=== PATIENT | female | born 1950 | race Caucasian/White ===

== ENCOUNTER 2018-12-12 19:43 | Inpatient (IN) | payer MEDICARE, MEDICAID ==
--- NOTE | 2018-12-12 20:16 | ED Physician Chart ---
ED Chief Complaint/HPI - Patient Information Date Seen:: 12/12/18 Time Seen:: 20:16 Chief Complaint:: Abnormal labs History of Present Illness:: 68 yo female with history of COPD, respiratory failure on ventilation via a trach tube, G-tube, sepsis, dysphagia, hepatic failure, anemia, edema, cardiomyopathy, AFib, TIA/stroke, gout, hypothyroidism and CKD was brought from [facility] to ER for evaluation of abnormal labs (BUN 150, K 3.2) today. Patient is obtunded. History is based on chart review. Allergies:: Allergies Allergy/AdvReac Type Severity Reaction Status Date / Time No Known Allergies Allergy Verified 12/12/18 19:59 Vitals:: Vital Signs - 8 hr 12/12/18 19:45 Temp 98.7 F HR 84 RR 16 BP 109/48 O2 Sat % 100 ED Review of Systems - Review of Systems General/Constitutional: No fever Skin: No bruising Eyes: No pain ENT: No nasal drainage Neck: Other (Tracheostomy) Cardio Vascular: No chest pain, edema Pulmonary: SOB GI: No nausea, No vomiting Musculoskeletal: No muscle pain Neurological: No seizure ED Past Medical History - Past Medical History Past Medical History: Asthma/COPD, CVA/TIA, Thyroid disorder (hypothyroidism), Other (RESPIRATORY FAILURE, G-TUBE, PNEUMONIA, SEPSIS, DYSPHAGIA, HEPATIC FAILURE, EDEMA, ANEMIA, CARDIOMYOPATHY, A-FIB, GOUT, CKD) Social History: Non Smoker, No Alcohol, No Drug Use Surgical History: PEG/GTube Family Medical History - Family Member Mother History Unknown: Yes ED Physical Exam - Physical Examination Other Gen/Cons comments:: Obtunded Head: Atraumatic Eyes: PERRL Other Skin comments:: Edema ENMT: Nasal exam nl Other Neck comments:: Trach intact Other Respiratory comments:: B/L rhonchi Cardio Vascular: RRR, No murmur, gallop, rubs, NL S1 S2 GI: Nondistended Other GI comments:: G-tube intact Other Extremities comments:: 1+ edema of BLE Other Neuro/Psych comments:: obtunded ED Labs/Radiology/EKG Results - Lab Results Results: Laboratory Last Values WBC 15.2 Th/cmm (4.8-10.8) H 12/13/18 04:25 RBC 2.43 Mil/cmm (3.80-5.20) L 12/13/18 04:25 Hgb 8.4 gm/dL (12-16) L 12/13/18 04:25 Hct 24.2 % (41.0-60) L 12/13/18 04:25 MCV 99.4 fl (81-100) 12/13/18 04:25 MCH 34.4 pg (27.0-31.0) H 12/13/18 04:25 MCHC Differential 34.6 pg (28.0-36.0) 12/13/18 04:25 RDW 16.1 % (11.5-20.0) 12/13/18 04:25 Plt Count 355 Th/cmm (150-400) 12/13/18 04:25 MPV 7.4 fl 12/13/18 04:25 Add Manual Diff YES 12/13/18 04:25 Neutrophils % 87.0 % (40.0-80.0) H 12/12/18 20:15 Band Neutrophils % 5 % (0-10) 12/13/18 04:25 Lymphocytes % 5.0 % (20.0-50.0) L 12/12/18 20:15 Monocytes % 5.0 % (2.0-10.0) 12/12/18 20:15 Eosinophils % 3.0 % (0.0-5.0) 12/12/18 20:15 Neutrophils (Manual) 79 % (40-80) 12/13/18 04:25 Lymphocytes 3 % (20-50) L 12/13/18 04:25 Monocytes 3 % (2-10) 12/13/18 04:25 Eosinophils 10 % (0-5) H 12/13/18 04:25 Basophils 0 % (0-3) 12/13/18 04:25 Sodium 132 mEq/L (136-145) L 12/13/18 04:25 Potassium 3.2 mEq/L (3.5-5.1) L 12/13/18 04:25 Chloride 89 mEq/L (98-107) L 12/13/18 04:25 Carbon Dioxide 26.9 mEq/L (21.0-31.0) 12/13/18 04:25 Anion Gap 19.3 (7.0-16.0) H 12/13/18 04:25 BUN 125 mg/dL (7-25) H* 12/13/18 04:25 Creatinine 1.6 mg/dL (0.6-1.2) H 12/13/18 04:25 Est GFR ( Amer) 41.5 ml/min (>90) 12/13/18 04:25 Est GFR (Non-Af Amer) 34.3 ml/min 12/13/18 04:25 BUN/Creatinine Ratio 78.1 12/13/18 04:25 Glucose 238 mg/dL (70-105) H 12/13/18 04:25 POC Glucose 251 MG/DL (70 - 105) H 12/13/18 05:18 Whole Bld Lactic Acid 4.81 mmol/L (0.60-1.99) H* 12/13/18 07:15 Calcium 9.4 mg/dL (8.6-10.3) 12/13/18 04:25 Phosphorus 2.9 mg/dL (2.5-5.0) 12/13/18 04:25 Magnesium 3.1 mg/dL (1.9-2.7) H 12/13/18 04:25 Total Bilirubin 1.1 mg/dL (0.3-1.0) H 12/12/18 20:15 AST 76 U/L (13-39) H 12/12/18 20:15 ALT 100 U/L (7-52) H 12/12/18 20:15 Alkaline Phosphatase 121 U/L (34-104) H 12/12/18 20:15 Troponin I 0.05 ng/mL (0.01-0.05) 12/12/18 20:15 B-Natriuretic Peptide 146.0 pg/mL (5.0-100.0) H 12/13/18 04:25 Total Protein 8.6 gm/dL (6.0-8.3) H 12/12/18 20:15 Albumin 4.0 gm/dL (3.7-5.3) 12/12/18 20:15 Globulin 4.6 gm/dL 12/12/18 20:15 Albumin/Globulin Ratio 0.9 (1.0-1.8) L 12/12/18 20:15 Triglycerides 813 mg/dL (<150) H 12/13/18 04:25 Cholesterol 397 mg/dL (<200) H 12/13/18 04:25 LDL Cholesterol Direct 187 mg/dL (75-193) 12/13/18 04:25 HDL Cholesterol 34 mg/dL (23-92) 12/13/18 04:25 TSH 3.28 uIU/ml (0.34-5.60) 12/13/18 04:25 Urine Source CLEAN C 12/12/18 20:30 Urine Color YELLOW 12/12/18 20:30 Urine Clarity HAZY (CLEAR) 12/12/18 20:30 Urine pH 5.5 (4.6 - 8.0) 12/12/18 20:30 Ur Specific Slater 1.010 (1.005-1.030) 12/12/18 20:30 Urine Protein NEGATIVE mg/dL (NEGATIVE) 12/12/18 20:30 Urine Glucose (UA) NEGATIVE mg/dL (NEGATIVE) 12/12/18 20:30 Urine Ketones NEGATIVE mg/dL (NEGATIVE) 12/12/18 20:30 Urine Blood NEGATIVE (NEGATIVE) 12/12/18 20:30 Urine Nitrate NEGATIVE (NEGATIVE) 12/12/18 20:30 Urine Bilirubin NEGATIVE (NEGATIVE) 12/12/18 20:30 Urine Urobilinogen 0.2 E.U./dL (0.2 - 1.0) 12/12/18 20:30 Ur Leukocyte Esterase SMALL (NEGATIVE) H 12/12/18 20:30 Urine RBC 5-10 /hpf (0-5) H 12/12/18 20:30 Urine WBC 2-5 /hpf (0-5) 12/12/18 20:30 Ur Epithelial Cells RARE /lpf (FEW) 12/12/18 20:30 Amorphous Sediment FEW URATES (NONE SEEN) 12/12/18 20:30 Urine Bacteria FEW /hpf (NONE SEEN) 12/12/18 20:30 Urine Yeast FEW /hpf (NONE SEEN) H 12/12/18 20:30 - Radiology Results Results: CXR: suspect trace left effusion, no focal consolidation, tracheostomy tube - EKG Interpretations EKG Time:: 20:37 Rate & Rhythm: 79 bpm, SR [place]: normal P axis Intervals: prolonged QT interval Comments:: Abnormal EKG ED Assessment - Assessment General Assessment: Sepsis UTI Dehydration Hyponatremia Hypokalemia Acute renal failure, pre-renal Metabolic encephalopathy Anemia, normocytic Assessment/Comments:: CBC, CMP, Trop, BNP, lactic acid Urine culture, sputum culture, blood culture EKG, CXR Trach to vent: AC16, TV450, PEEP5, 2.5L O2 NS 1L IV bolus Rocephin 1g IV K-rider 20mEq IV Admit to ICU ED Septic Shock - . Is Septic Shock (SBP<90, OR Lactate>4 mmol\L) present?: No - <6hrs of presentation: Vital Signs: Vital Signs - 8 hr 12/12/18 19:45 Temp 98.7 F HR 84 RR 16 BP 109/48 O2 Sat % 100 ED Reassessment (Disposition) - Reassessment Reassessment Condition:: Improved - Patient Disposition Discharge/Transfer:: Acute Care w/in this hosp Admitting Medical Physician:: Katelyn Silva
[2018-12-12 20:41] LABS: ALB/GLOB RATIO 0.9 (1.0-1.8); ANION GAP 22.9 (7.0-16.0); BILIRUBIN,TOTAL 1.1 mg/dL (0.3-1.0); CALCIUM SERUM 10.6 mg/dL (8.6-10.3); CARBON DIOXIDE 29.3 mEq/L (21.0-31.0); CREATININE - SERUM 1.9 mg/dL (0.6-1.2); GFR NON AFRICAN-AMERICAN 28.1 ml/min; POTASSIUM SERUM 3.2 mEq/L (3.5-5.1); TOTAL PROTEIN,SERUM 8.6 gm/dL (6.0-8.3)
[2018-12-12 20:41] LABS: URINE SOURCE CLEAN C
[2018-12-12 20:45] LABS: URINE BILIRUBIN NEGATIVE (NEGATIVE); URINE BLOOD NEGATIVE (NEGATIVE); URINE GLUCOSE (UA) NEGATIVE (NEGATIVE); URINE KETONE NEGATIVE (NEGATIVE); URINE LEUKOCYTE ESTERASE SMALL (NEGATIVE); URINE NITRATE NEGATIVE (NEGATIVE); URINE PH 5.5 (4.6 - 8.0); URINE PROTEIN NEGATIVE (NEGATIVE); URINE UROBILINOGEN 0.2 E.U./dL (0.2 - 1.0)
[2018-12-12 20:52] LABS: TROP I 0.05 ng/mL (0.01-0.05)
[2018-12-12] MEDS ORDERED: Sodium Chloride 0.9% 1,000 ML IV ONE ×2 (21:01→22:07)
[2018-12-12] MEDS ORDERED: KCL 20mEq/100mL Premix 20 MEQ/100 ML PIGGYBACK IV ONE ×2 (21:02→21:13)
[2018-12-12 21:07] LABS: URINE CLARITY HAZY (CLEAR); URINE COLOR YELLOW; URINE MICROSCOPIC INDICATED? YES
[2018-12-12 21:13] LABS: URINE BACTERIA FEW /hpf (NONE SEEN); URINE EPITHELIAL CELLS RARE /lpf (FEW); URINE YEAST FEW /hpf (NONE SEEN)
[2018-12-12 21:15] LABS: URINE AMORPHOUS SEDIMENT FEW URATES (NONE SEEN)
[2018-12-12 21:29] LABS: HEMOGLOBIN 9.9 gm/dL (12-16); RED BLOOD COUNT 2.94 Mil/cmm (3.80-5.20); WHITE BLOOD COUNT 14.3 Th/cmm (4.8-10.8)
[2018-12-12 21:30] LABS: HEMATOCRIT 29.1 % (41.0-60); MEAN CELL VOLUME 98.8 fl (81-100); MEAN CORPUSCULAR HEMOGLOBIN 33.4 pg (27.0-31.0); MEAN CORPUSCULAR HGB CONC 33.9 pg (28.0-36.0); MEAN PLATELET VOLUME 7.2 fl; PLATELET COUNT 409 Th/cmm (150-400); RED CELL DISTRIBUTION WIDTH 15.5 % (11.5-20.0)
[2018-12-12 21:33] LABS: BAND NEUTROPHILE 3 % (0-10); EOSINOPHIL 2 % (0-5); LYMPHOCYTE 5 % (20-50); MONOCYTE 3 % (2-10); NEUTROPHILS 87 % (40-80)
[2018-12-12] MEDS ORDERED: cefTRIAXone 1 GM in Sodium Chloride 0.9% 50 ML IV ONE (21:38)
[2018-12-12] MEDS: Sodium Chloride 0.9% 1,000 ML IV SCH (23:00)
[2018-12-12] MEDS ORDERED: Piperacillin Sodium/Tazobact 2.25 gm Vial IV ONE (23:59)
[2018-12-13] MEDS: Piperacillin/Tazobact 2.25 gm in 0.9% NS 50 ML IV SCH ×5 (00:12→23:47)
[2018-12-13] MEDS: INSULIN ASPART SLIDING SCALE 100 UNITS/ML UNIT SUBQ SCH ×5 (00:13→23:54)
[2018-12-13] MEDS ORDERED: Piperacillin Sodium/Tazobact 2.25 gm Vial IV ONE (04:54)
[2018-12-13 05:20] LABS: HEMATOCRIT 24.2 % (41.0-60); HEMOGLOBIN 8.4 gm/dL (12-16); MEAN CELL VOLUME 99.4 fl (81-100); MEAN CORPUSCULAR HEMOGLOBIN 34.4 pg (27.0-31.0); MEAN CORPUSCULAR HGB CONC 34.6 pg (28.0-36.0); MEAN PLATELET VOLUME 7.4 fl; PLATELET COUNT 355 Th/cmm (150-400); RED BLOOD COUNT 2.43 Mil/cmm (3.80-5.20); RED CELL DISTRIBUTION WIDTH 16.1 % (11.5-20.0)
[2018-12-13 05:27] LABS: WHITE BLOOD COUNT 15.2 Th/cmm (4.8-10.8)
[2018-12-13 05:42] LABS: ANION GAP 19.3 (7.0-16.0); CALCIUM SERUM 9.4 mg/dL (8.6-10.3); CARBON DIOXIDE 26.9 mEq/L (21.0-31.0); CREATININE - SERUM 1.6 mg/dL (0.6-1.2); GFR AFRICAN-AMERICAN 41.5 ml/min (>90); GFR NON AFRICAN-AMERICAN 34.3 ml/min; MAGNESIUM 3.1 mg/dL (1.9-2.7); PHOSPHOROUS 2.9 mg/dL (2.5-5.0); POTASSIUM SERUM 3.2 mEq/L (3.5-5.1)
[2018-12-13] MEDS: Sodium Chloride 0.9% 1,000 ML IV SCH ×3 (06:00→22:24)
[2018-12-13 06:12] LABS: BAND NEUTROPHILE 5 % (0-10); BASOPHIL 0 % (0-3); EOSINOPHIL 10 % (0-5); LYMPHOCYTE 3 % (20-50); MONOCYTE 3 % (2-10); NEUTROPHILS 79 % (40-80)
[2018-12-13 08:37] VITALS: BP 109/48
--- NOTE | 2018-12-13 08:49 | Diagnostic Imaging Report ---
CHEST X-RAY: AP view INDICATION: Shortness of breath COMPARISON: None FINDINGS: Tracheostomy tube is noted. Suboptimal lung markings are seen with mild elevation of left hemidiaphragm increased left basal lung markings. Chronic lung changes are also noted. Mild Cardiomegaly is noted. No focal consolidation. There may be trace left pleural fluid. Degenerative changes of the spine are noted. IMPRESSION: Chronic lung changes with increased left basal lung markings which may be due to subsegmental atelectasis. Faint infiltrate of the left base is less likely but cannot be excluded.. No focal consolidation identified. Suspect trace left effusion. Mild cardiomegaly.
--- NOTE | 2018-12-13 09:19 | Diagnostic Imaging Report ---
CHEST X-RAY: AP view INDICATION: Respiratory failure, pneumonia COMPARISON: 12/12/2018 FINDINGS: Tracheostomy tube is stable. Chronic lung changes are noted. Suboptimal lung volumes are seen with bibasal atelectatic changes. No focal consolidation or gross effusions. Mild cardiomegaly is noted. IMPRESSION: Suboptimal lung volumes and bibasal atelectatic changes. No focal consolidation identified. Chronic lung changes.
[2018-12-13 09:42] LABS: pH 7.47 (7.35-7.45)
[2018-12-13] MEDS ORDERED: INSULIN ASPART SLIDING SCALE 100 UNITS/ML UNIT SUBQ SCH (11:30)
[2018-12-13] MEDS ORDERED: Potassium Chloride 40 MEQ, Lidocaine 1% 20mL Vial 25 MG in Sodium Chloride 0.9% 250 ML IV ONE (15:00)
[2018-12-13] MEDS: Albuterol Nebulizer 2.5mg/3mL HHN PRN (15:22)
[2018-12-13] MEDS ORDERED: VTE Chemical Prophylaxis Screen/Admission MC PRN (15:56)
[2018-12-13] MEDS: Epoetin Alfa 20000 Units/mL Vial SUBQ SCH (16:57)
[2018-12-13 17:09] LABS: EOSINOPHIL SMEAR SOURCE URINE; EOSINOPHILS SMEAR COUNT NONE SEEN (NONE SEEN)
[2018-12-13] MEDS: Lactulose 10 Gm/15 mL 30mL UDC GT SCH (17:50)
[2018-12-13] MEDS: Insulin Detemir 100 units/mL 10mL Vial SUBQ SCH (17:52)
[2018-12-13] MEDS ORDERED: cefTRIAXone 1 GM in Sodium Chloride 0.9% 50 ML IV SCH (20:00)
--- NOTE | 2018-12-13 20:08 | Consultation ---
DATE OF CONSULTATION: 12/13/2018 ATTENDING: Jonathon Silva M.D. REASON FOR CONSULTATION: Worsening kidney function, electrolyte imbalance, and fluid management. HISTORY OF PRESENT ILLNESS: This is a 68-year-old female with past medical history of chronic kidney disease, who was brought in because of abnormal labs. A few hours prior to admission, the patient had labs drawn, which revealed a BUN of greater than 150, creatinine of 1.9, sodium of 124, potassium 3.2. She was eventually brought to the Emergency Room. Her white count was 14.3. Chest x-ray revealed no acute disease. Temperature was 98.7 degrees. Her BUN/creatinine were 151/1.9 with a sodium of 125 and potassium of 3.2. Lactic acid was 3.86. PAST MEDICAL HISTORY: 1. Chronic kidney disease. 2. Respiratory failure, vent dependent. 3. Chronic liver failure. 4. Essential hypertension. 5. Hypothyroidism. 6. Type 2 diabetes mellitus. 7. Chronic obstructive pulmonary disease. 8. Dementia without behavioral disturbance. 9. Gout. 10. Status post transient ischemic attack. PAST SURGICAL HISTORY: 1. Status post tracheostomy. 2. Status post PEG placement. CURRENT MEDICATIONS: She is currently on acetaminophen, albuterol, allopurinol, ascorbic acid, ceftriaxone, docusate sodium, Epogen, ferrous sulfate, aspart, KCl, lactulose, levothyroxine, multivitamins with minerals, Zofran, Protonix, piperacillin sodium, sevelamer, vitamin B complex, piperacillin tazobactam. ALLERGIES: No known drug allergies. SOCIAL AND FAMILY HISTORY: I was not able to obtain directly from the patient because she is currently on a ventilator. REVIEW OF SYSTEMS: Again, I was not able to decipher from the patient because of the same reason. PHYSICAL EXAMINATION: GENERAL: The patient is obtunded, right now on a ventilator, but not in any form of distress. VITAL SIGNS: Her blood pressure is 109/48, pulse 81, temperature 98.1 degrees. SKIN: Poor turgor. Warm. No rash, no jaundice appreciated. HEENT: Head: Normocephalic, atraumatic. Eyes: Unable to assess her extraocular muscles. Pupils are equal, round, reactive to light and accommodates. Anicteric sclerae. Pale conjunctivae. Nose: Midline nasal septum. Mouth: Dry mucosa with poor dentition. NECK: Supple, no adenopathy, no thyromegaly, no bruits. Presence of midline endotracheal tube. CHEST AND CVS: S1, S2. No rub, murmur, no gallop appreciated. Point of maximal impulse fifth intercostal space, left lateral clavicular line. There are no bruits either diastolic. No abdominal or femoral bruits appreciated. LUNGS: Equal expansion. No use of accessory muscles. No supraclavicular retractions. Decreased breath sounds, scattered rhonchi, but no rales nor wheezes appreciated. BREASTS: Pendulous symmetrical without any discharge. ABDOMEN: Obese, soft, questionable ascites, decreased bowel sounds. No bruits either diastolic or systolic. RECTAL: Unable to perform due to the patient's size and position. GENITOURINARY: Normal appearing female genitalia with indwelling Ricketts catheter. MUSCULOSKELETAL: No effusions present in her joints, but unable to assess her range of motion. EXTREMITIES: No evidence of edema, cyanosis, or clubbing with palpable femoral, popliteal and dorsalis pedis pulses. NEUROLOGIC: The patient is obtunded at the present time, so I was not able to pursue further by neuro exam. LABORATORY DATA: Revealed sodium 132, potassium 3.2, chloride 89, bicarbonate 26, BUN 125, creatinine 1.6, glucose 238, magnesium 3.1, phosphorus 2.9, calcium 9.4. BNP 146, cholesterol 397, triglycerides 813, LDL 187, HDL 34. TSH 3.28. IMPRESSION: 1. Acute kidney injury on chronic kidney disease, MDRD GFR 34 mL per minute, stage 3. The patient's chronic kidney disease is secondary to longstanding history of diabetes, giving rise to diabetic nephropathy. She also has some underlying hypertension, which could also lead to development of hypertensive nephrosclerosis. Acute kidney injury with markedly elevated BUN to creatinine ratio is likely prerenal in nature. She also has electrolyte imbalance, suggestive of some form of electrolyte loss, which could be due to nausea and vomiting as well as diarrhea. This could explain the prerenal component. However, this was also supported by physical exam of poor skin turgor with dry oral mucosa. Elevated BUN to creatinine ratio may also suggest some form of hypercatabolism in the presence of severe sepsis. 2. Electrolyte imbalance, etiology unknown with hyponatremia and hypokalemia. Again, with this combination, the possibility of nausea and vomiting or diarrhea may be a causative factor. The patient currently is not on any diuretics. 3. Lactic acidosis secondary to ongoing severe sepsis. 4. Sepsis, possibly due to complicated urinary tract infection. 5. Respiratory failure, vent dependent. 6. Chronic liver failure, possibly due to non-alcoholic fatty liver disease. 7. Dyslipidemia. 8. Essential hypertension. 9. Hypothyroidism. 10. Type 2 diabetes mellitus. 11. Chronic obstructive pulmonary disease. 12. Dementia without behavioral disturbance. 13. Gout. 14. Status post transient ischemic attack. PLAN: 1. Continue with normal saline. 2. Urine C and S and blood culture x 2. 3. Urine sodium, eosinophils, and creatinine. 4. Urine microalbumin to creatinine ratio. 5. Renal along with abdominal ultrasound. 6. Electrolytes, ammonia level, ,lipase and CBC, hemoglobin A1c, urinalysis, lactic acid level, aldosterone along with cortisol. Thank you Dr. Silva for this consult. We will follow the patient closely with you. [facility]# [id number]
[2018-12-13] MEDS: Docusate Sodium 100 mg/10 mL UD GT SCH ×2 (20:38→21:45)
[2018-12-14 05:02] LABS: HEMATOCRIT 24.3 % (41.0-60)
[2018-12-14 05:16] LABS: HEMOGLOBIN 8.3 gm/dL (12-16); MEAN PLATELET VOLUME 6.6 fl; PLATELET COUNT 343 Th/cmm (150-400); RED BLOOD COUNT 2.43 Mil/cmm (3.80-5.20); RED CELL DISTRIBUTION WIDTH 16.2 % (11.5-20.0); WHITE BLOOD COUNT 11.1 Th/cmm (4.8-10.8)
[2018-12-14 05:22] LABS: MEAN CELL VOLUME 100.1 fl (81-100)
[2018-12-14 05:36] LABS: ALB/GLOB RATIO 0.9 (1.0-1.8); ALBUMIN 3.2 gm/dL (3.7-5.3); ANION GAP 16.5 (7.0-16.0); BILIRUBIN,TOTAL 0.8 mg/dL (0.3-1.0); CARBON DIOXIDE 24.7 mEq/L (21.0-31.0); CREATININE - SERUM 1.4 mg/dL (0.6-1.2); GFR AFRICAN-AMERICAN 48.4 ml/min (>90); MAGNESIUM 2.9 mg/dL (1.9-2.7); PHOSPHOROUS 1.7 mg/dL (2.5-5.0); POTASSIUM SERUM 4.2 mEq/L (3.5-5.1); TOTAL PROTEIN,SERUM 6.7 gm/dL (6.0-8.3); URIC ACID 6.3 mg/dL (2.3-6.6)
[2018-12-14] MEDS: INSULIN ASPART SLIDING SCALE 100 UNITS/ML UNIT SUBQ SCH ×4 (05:38→23:50)
[2018-12-14] MEDS: Sodium Chloride 0.9% 1,000 ML IV SCH ×4 (05:38→23:45)
[2018-12-14] MEDS: Piperacillin/Tazobact 2.25 gm in 0.9% NS 50 ML IV SCH ×4 (05:38→23:50)
[2018-12-14 06:00] LABS: BAND NEUTROPHILE 0 % (0-10); LYMPHOCYTE 5 % (20-50); NEUTROPHILS 85 % (40-80)
[2018-12-14 06:01] LABS: BASOPHIL 0 % (0-3); EOSINOPHIL 5 % (0-5); MONOCYTE 5 % (2-10)
[2018-12-14] MEDS: Levothyroxine 0.125 Mg Tab GT SCH (06:51)
[2018-12-14] MEDS: Albuterol Nebulizer 2.5mg/3mL HHN PRN ×3 (07:23→19:52)
[2018-12-14] MEDS ORDERED: Pantoprazole 40 mg/Packet GT SCH (09:00)
[2018-12-14] MEDS: Insulin Detemir 100 units/mL 10mL Vial SUBQ SCH ×2 (09:20→17:07)
[2018-12-14] MEDS: Chlorhexidine Gluconate 0.12% 15mL Mouthwash MM SCH ×2 (09:23→20:35)
[2018-12-14] MEDS: Vitamin B Complex w/Vitamin C Tab GT SCH (09:26)
[2018-12-14] MEDS: Multivitamin w/ Minerals 15 mL UDC GT SCH (09:26)
[2018-12-14] MEDS: Ferrous Sulfate 300 MG/5 ML UDC GT SCH (09:26)
[2018-12-14] MEDS: Lactulose 10 Gm/15 mL 30mL UDC GT SCH ×2 (09:26→17:04)
--- NOTE | 2018-12-14 09:32 | Diagnostic Imaging Report ---
Portable chest x-ray HISTORY: Shortness of breath Compared with prior exam of December 13, 2018, there is a very poor inspiration. Heart size difficult to assess. Allowing for the poor inspiration, no acute focal pulmonary processes. Slight pleural reaction noted about the right costophrenic angle. IMPRESSION: 1. Allowing for a poor inspiration, no definite acute focal pulmonary parenchymal processes
--- NOTE | 2018-12-14 12:31 | Diagnostic Imaging Report ---
Exam: Ultrasound summation abdomen. HISTORY: Ascites, liver failure Exam: None Findings: Real-time ultrasound examination abdomen performed the planes. The study is limited due to patient body habitus and large amount of intra-abdominal bowel gas. The liver parenchyma is intact. There is evidence for cholelithiasis multiple calculi in the most dependent portion of gallbladder. Common bile duct measures 4.6 mm. Pancreas is not seen. There is no evidence for obstructive uropathy or nephrolithiasis. Right kidney measures 11.2 x 4.5 x 8.3 cm in diameter. The left kidney measures 11.9 x 5.9 x 7.1 mm diameter. The spleen is enlarged. No free fluid is noted. IMPRESSION: Extremely limited examination due to patient body habitus and large amount of intra-abdominal bowel gas Cholelithiasis.
[2018-12-14] MEDS ORDERED: Potassium Phosphate 20 MMOLE in Sodium Chloride 0.9% 250 ML IV ONE (13:49)
--- NOTE | 2018-12-14 13:49 | General Progress Note ---
Subjective - Review of Systems Service Date: 12/14/18 Subjective: barely opens eyes Objective - Results Result Diagrams: 12/14/18 04:51 12/14/18 04:51 Recent Labs: Laboratory Last Values WBC 11.1 Th/cmm (4.8-10.8) H 12/14/18 04:51 RBC 2.43 Mil/cmm (3.80-5.20) L 12/14/18 04:51 Hgb 8.3 gm/dL (12-16) L 12/14/18 04:51 Hct 24.3 % (41.0-60) L 12/14/18 04:51 MCV 100.1 fl (81-100) H 12/14/18 04:51 MCH 34.0 pg (27.0-31.0) H 12/14/18 04:51 MCHC Differential 34.0 pg (28.0-36.0) 12/14/18 04:51 RDW 16.2 % (11.5-20.0) 12/14/18 04:51 Plt Count 343 Th/cmm (150-400) 12/14/18 04:51 MPV 6.6 fl 12/14/18 04:51 Add Manual Diff YES 12/14/18 04:51 Neutrophils % 87.0 % (40.0-80.0) H 12/12/18 20:15 Band Neutrophils % 0 % (0-10) 12/14/18 04:51 Lymphocytes % 5.0 % (20.0-50.0) L 12/12/18 20:15 Monocytes % 5.0 % (2.0-10.0) 12/12/18 20:15 Eosinophils % 3.0 % (0.0-5.0) 12/12/18 20:15 Neutrophils (Manual) 85 % (40-80) H 12/14/18 04:51 Lymphocytes 5 % (20-50) L 12/14/18 04:51 Monocytes 5 % (2-10) 12/14/18 04:51 Eosinophils 5 % (0-5) 12/14/18 04:51 Basophils 0 % (0-3) 12/14/18 04:51 Eos Smear Source URINE 12/13/18 15:00 Eos Smear Total Cells NONE SEEN (NONE SEEN) 12/13/18 15:00 Specimen Source Arterial 12/13/18 09:05 Sample Site LB 12/13/18 09:05 pH 7.47 (7.35-7.45) H 12/13/18 09:05 pCO2 39.0 mmHg (35.0-45.0) 12/13/18 09:05 pO2 104.0 mmHg (80.0-100.0) H 12/13/18 09:05 HCO3 28.4 mEq/L (20.0-26.0) H 12/13/18 09:05 Base Excess 4.4 mEq/L (-3.0-3.0) H 12/13/18 09:05 O2 Saturation 98.0 % (92.0-100.0) 12/13/18 09:05 Vent Rate 16 12/13/18 09:05 Inspired O2 28 12/13/18 09:05 Tidal Volume 450 12/13/18 09:05 PEEP 5 12/13/18 09:05 Critical Value PW 12/13/18 09:05 Sodium 143 mEq/L (136-145) 12/14/18 04:51 Potassium 4.2 mEq/L (3.5-5.1) 12/14/18 04:51 Chloride 106 mEq/L (98-107) 12/14/18 04:51 Carbon Dioxide 24.7 mEq/L (21.0-31.0) 12/14/18 04:51 Anion Gap 16.5 (7.0-16.0) H 12/14/18 04:51 BUN 79 mg/dL (7-25) H 12/14/18 04:51 Creatinine 1.4 mg/dL (0.6-1.2) H 12/14/18 04:51 Est GFR ( Amer) 48.4 ml/min (>90) 12/14/18 04:51 Est GFR (Non-Af Amer) 40.0 ml/min 12/14/18 04:51 BUN/Creatinine Ratio 56.4 12/14/18 04:51 Glucose 190 mg/dL (70-105) H 12/14/18 04:51 POC Glucose 159 MG/DL (70 - 105) H 12/14/18 12:03 Whole Bld Lactic Acid 2.53 mmol/L (0.60-1.99) H* 12/14/18 08:10 Uric Acid 6.3 mg/dL (2.3-6.6) 12/14/18 04:51 Calcium 9.0 mg/dL (8.6-10.3) 12/14/18 04:51 Phosphorus 1.7 mg/dL (2.5-5.0) L 12/14/18 04:51 Magnesium 2.9 mg/dL (1.9-2.7) H 12/14/18 04:51 Total Bilirubin 0.8 mg/dL (0.3-1.0) 12/14/18 04:51 AST 69 U/L (13-39) H 12/14/18 04:51 ALT 89 U/L (7-52) H 12/14/18 04:51 Alkaline Phosphatase 99 U/L (34-104) 12/14/18 04:51 Ammonia 38 umol/L (16-53) 12/14/18 08:10 Troponin I 0.05 ng/mL (0.01-0.05) 12/12/18 20:15 B-Natriuretic Peptide 146.0 pg/mL (5.0-100.0) H 12/13/18 04:25 Total Protein 6.7 gm/dL (6.0-8.3) 12/14/18 04:51 Albumin 3.2 gm/dL (3.7-5.3) L 12/14/18 04:51 Globulin 3.5 gm/dL 12/14/18 04:51 Albumin/Globulin Ratio 0.9 (1.0-1.8) L 12/14/18 04:51 Triglycerides 813 mg/dL (<150) H 12/13/18 04:25 Cholesterol 397 mg/dL (<200) H 12/13/18 04:25 LDL Cholesterol Direct 187 mg/dL (75-193) 12/13/18 04:25 HDL Cholesterol 34 mg/dL (23-92) 12/13/18 04:25 Lipase 174 U/L (11-82) H 12/14/18 04:51 TSH 3.28 uIU/ml (0.34-5.60) 12/13/18 04:25 Urine Source CLEAN C 12/12/18 20:30 Urine Color YELLOW 12/12/18 20:30 Urine Clarity HAZY (CLEAR) 12/12/18 20:30 Urine pH 5.5 (4.6 - 8.0) 12/12/18 20:30 Ur Specific [place] 1.010 (1.005-1.030) 12/12/18 20:30 Urine Protein NEGATIVE mg/dL (NEGATIVE) 12/12/18 20:30 Urine Glucose (UA) NEGATIVE mg/dL (NEGATIVE) 12/12/18 20:30 Urine Ketones NEGATIVE mg/dL (NEGATIVE) 12/12/18 20:30 Urine Blood NEGATIVE (NEGATIVE) 12/12/18 20:30 Urine Nitrate NEGATIVE (NEGATIVE) 12/12/18 20:30 Urine Bilirubin NEGATIVE (NEGATIVE) 12/12/18 20:30 Urine Urobilinogen 0.2 E.U./dL (0.2 - 1.0) 12/12/18 20:30 Ur Leukocyte Esterase SMALL (NEGATIVE) H 12/12/18 20:30 Urine RBC 5-10 /hpf (0-5) H 12/12/18 20:30 Urine WBC 2-5 /hpf (0-5) 12/12/18 20:30 Ur Epithelial Cells RARE /lpf (FEW) 12/12/18 20:30 Amorphous Sediment FEW URATES (NONE SEEN) 12/12/18 20:30 Urine Bacteria FEW /hpf (NONE SEEN) 12/12/18 20:30 Urine Yeast FEW /hpf (NONE SEEN) H 12/12/18 20:30 Ur Random Sodium 28 mmol/L 12/13/18 15:00 Urine Creatinine 22.0 mg/dl (28.0-217.0) L 12/13/18 15:00 Microalb/Creat Ratio 291.5 mg/g creat (0.0-30.0) H 12/13/18 15:00 - Physical Exam Vitals and I&O: Vital Signs Temp 98.9 F 12/14/18 12:00 Pulse 81 12/14/18 13:23 Resp 16 12/14/18 12:00 BP 90/36 12/14/18 12:00 Pulse Ox 100 12/14/18 13:23 Intake & Output 12/13/18 12/14/18 12/14/18 18:59 06:59 18:59 Intake Total 3361.367 1692.5 622.5 Output Total 1300 1100 Balance 2061.367 592.5 622.5 Weight (lbs) 67.222 kg 67.585 kg Intake: Intake, IV Amount 2261.367 1192.5 622.5 Piperacillin Sodium/ 100 100 50 Tazobact 2.25 gm In Sodium Chloride 0.9% 50 ml @ 100 mls/hr IV Q6HR [facility] Rx#:[id number] Potassium Chloride 40 meq 253.867 Lidocaine 1% 20mL Vial 25 mg In Sodium Chloride 0.9% 250 ml @ 68 mls/hr IV X1 ONE Rx#:[id number] Sodium Chloride 0.9% 1, 1907.5 1092.5 572.5 000 ml @ 150 mls/hr IV . Q6H40M [facility] Rx#:[id number] Oral 0 Tube Feeding 720 300 Other 380 200 Output: Urine 1300 1100 Other: # Bowel Movements 2 3 Stool Characteristics Soft Liquid Liquid Green Brown Brown Weight Source Bedscale Bedscale Active Medications: Current Medications Acetaminophen (Tylenol) 650 mg PO Q4HR PRN PRN Reason: Pain or Fever >101 Stop: 02/11/19 10:22 Albuterol Sulfate (Albuterol 2.5mg/3ml Neb Ud) 2.5 mg HHN Q2HR PRN PRN Reason: Shortness of Breath Stop: 02/11/19 10:22 Last Admin: 12/14/18 13:22 Dose: 2.5 mg Allopurinol (Zyloprim) 300 mg GT DAILY [facility] Stop: 02/12/19 08:59 Last Admin: 12/14/18 09:25 Dose: Not Given Ascorbic Acid (Vitamin C) 500 mg GT DAILY [facility] Stop: 02/12/19 08:59 Last Admin: 12/14/18 09:25 Dose: Not Given Chlorhexidine Gluconate (Peridex) 15 ml MM 0800,2000 [facility] Stop: 02/12/19 08:59 Last Admin: 12/14/18 09:23 Dose: 15 ml Docusate Sodium (Colace) 200 mg GT HS [facility] Stop: 02/11/19 20:59 Last Admin: 12/13/18 21:45 Dose: Not Given Epoetin Ranjit (Epogen) 3,000 units SUBQ MWF@1600 [facility] Stop: 02/11/19 15:59 Last Admin: 12/13/18 16:57 Dose: 3,000 units Ferrous Sulfate (Iron) 7.5 mg GT DAILY [facility] Stop: 02/12/19 08:59 Last Admin: 12/14/18 09:26 Dose: Not Given Sodium Chloride (Nacl 0.9%) 1,000 mls @ 150 mls/hr IV .Q6H40M [facility] Stop: 02/10/19 22:59 Last Admin: 12/14/18 09:27 Dose: 150 mls/hr Piperacillin Sod/Tazobactam (Sod 2.25 gm/ Sodium Chloride) 50 mls @ 100 mls/hr IV Q6HR [facility] Stop: 02/11/19 00:00 Last Infusion: 12/14/18 12:35 Dose: Infused Insulin Aspart (Novolog Insulin Sliding Scale) 0 units SUBQ Q6HR [facility]; Protocol Stop: 02/11/19 00:00 Last Admin: 12/14/18 12:04 Dose: 2 units Insulin Detemir (Levemir Insulin) 35 units SUBQ BID [facility]; Protocol Stop: 02/11/19 16:59 Last Admin: 12/14/18 09:20 Dose: 35 units Lactulose (Cephulac) 20 gm GT BID [facility] Stop: 02/11/19 16:59 Last Admin: 12/14/18 09:26 Dose: Not Given Levothyroxine Sodium (Synthroid) 0.125 mg GT QDAC [facility] Stop: 02/12/19 07:29 Last Admin: 12/14/18 06:51 Dose: Not Given Miscellaneous (Vte Chemical Prophylaxis Screen/ Admission) 1 ea [facility] PRN PRN PRN Reason: PROTOCOL Stop: 02/11/19 15:55 Multivitamins/Minerals (Theragran M) 15 ml GT DAILY [facility] Stop: 02/12/19 08:59 Last Admin: 12/14/18 09:26 Dose: Not Given Ondansetron HCl (Zofran Odt) 4 mg PO Q6HR PRN PRN Reason: Nausea Pantoprazole Sodium (Protonix) 40 mg IVP DAILY [facility] Stop: 02/11/19 08:59 Last Admin: 12/14/18 09:19 Dose: 40 mg Sevelamer Carbonate (Renvela) 800 mg PO TID [facility] Stop: 02/11/19 13:59 Last Admin: 12/14/18 13:23 Dose: 800 mg Vitamin B Complex/Vit C/Folic Acid (Vitamin B Complex W/Vitamin C) 1 tab GT DAILY [facility] Stop: 02/12/19 08:59 Last Admin: 12/14/18 09:26 Dose: Not Given General: No acute distress HEENT: Atraumatic, Mucous membr. moist/pink Neck: Supple, +2 carotid pulse wo bruit Cardiovascular: Regular rate, Normal S1, Normal S2 Lungs: Normal air movement Abdomen: Bowel sounds, Soft, Hepatomegaly Extremities: no Edema Neurological: Sensation intact Skin: no Rash Psych/Mental Status: Mood NL - Procedures Procedures: Procedures Procedure Code Date RESPIRATORY VENTILATION, 24-96 CONSECUTIVE HOURS [id number] 12/12/18 Assessment/Plan - Assessment Assessment: KOLBY on CKD RFVD Electrolyte Imbalance Sepsei 2/2 Cx UTI Chronic Liver Failure 2/2 NAFLD Dyslipidemia Ess Htn T2DM GB Stones - Plan Plan: Lab - Result Diagrams 12/14/18 04:51 12/14/18 04:51 Current Medications Acetaminophen (Tylenol) 650 mg PO Q4HR PRN PRN Reason: Pain or Fever >101 Stop: 02/11/19 10:22 Albuterol Sulfate (Albuterol 2.5mg/3ml Neb Ud) 2.5 mg HHN Q2HR PRN PRN Reason: Shortness of Breath Stop: 02/11/19 10:22 Last Admin: 12/14/18 13:22 Dose: 2.5 mg Allopurinol (Zyloprim) 300 mg GT DAILY [facility] Stop: 02/12/19 08:59 Last Admin: 12/14/18 09:25 Dose: Not Given Ascorbic Acid (Vitamin C) 500 mg GT DAILY [facility] Stop: 02/12/19 08:59 Last Admin: 12/14/18 09:25 Dose: Not Given Chlorhexidine Gluconate (Peridex) 15 ml MM 0800,2000 [facility] Stop: 02/12/19 08:59 Last Admin: 12/14/18 09:23 Dose: 15 ml Docusate Sodium (Colace) 200 mg GT HS [facility] Stop: 02/11/19 20:59 Last Admin: 12/13/18 21:45 Dose: Not Given Epoetin Ranjit (Epogen) 3,000 units SUBQ MWF@1600 [facility] Stop: 02/11/19 15:59 Last Admin: 12/13/18 16:57 Dose: 3,000 units Ferrous Sulfate (Iron) 7.5 mg GT DAILY [facility] Stop: 02/12/19 08:59 Last Admin: 12/14/18 09:26 Dose: Not Given Sodium Chloride (Nacl 0.9%) 1,000 mls @ 150 mls/hr IV .Q6H40M [facility] Stop: 02/10/19 22:59 Last Admin: 12/14/18 09:27 Dose: 150 mls/hr Piperacillin Sod/Tazobactam (Sod 2.25 gm/ Sodium Chloride) 50 mls @ 100 mls/hr IV Q6HR [facility] Stop: 02/11/19 00:00 Last Infusion: 12/14/18 12:35 Dose: Infused Insulin Aspart (Novolog Insulin Sliding Scale) 0 units SUBQ Q6HR [facility]; Protocol Stop: 02/11/19 00:00 Last Admin: 12/14/18 12:04 Dose: 2 units Insulin Detemir (Levemir Insulin) 35 units SUBQ BID [facility]; Protocol Stop: 02/11/19 16:59 Last Admin: 12/14/18 09:20 Dose: 35 units Lactulose (Cephulac) 20 gm GT BID [facility] Stop: 02/11/19 16:59 Last Admin: 12/14/18 09:26 Dose: Not Given Levothyroxine Sodium (Synthroid) 0.125 mg GT QDAC [facility] Stop: 02/12/19 07:29 Last Admin: 12/14/18 06:51 Dose: Not Given Miscellaneous (Vte Chemical Prophylaxis Screen/ Admission) 1 [facility] PRN PRN PRN Reason: PROTOCOL Stop: 02/11/19 15:55 Multivitamins/Minerals (Theragran M) 15 ml GT DAILY [facility] Stop: 02/12/19 08:59 Last Admin: 12/14/18 09:26 Dose: Not Given Ondansetron HCl (Zofran Odt) 4 mg PO Q6HR PRN PRN Reason: Nausea Pantoprazole Sodium (Protonix) 40 mg IVP DAILY [facility] Stop: 02/11/19 08:59 Last Admin: 12/14/18 09:19 Dose: 40 mg Sevelamer Carbonate (Renvela) 800 mg PO TID [facility] Stop: 02/11/19 13:59 Last Admin: 12/14/18 13:23 Dose: 800 mg Vitamin B Complex/Vit C/Folic Acid (Vitamin B Complex W/Vitamin C) 1 tab GT DAILY [facility] Stop: 02/12/19 08:59 Last Admin: 12/14/18 09:26 Dose: Not Given Lab - Result Diagrams 12/14/18 04:51 12/14/18 04:51 Kidney fnc better w/ BUN/CR of 79/1.4 good UOP FENa 1.25% suggestive of intrinsic kidney failure replace P04 continue IVF f/u electrolytes, cbc Nutritional Asmnt/Malnutr-PDOC - Dietary Evaluation Malnutrition Findings (Please click <Entered> for more info): Nutritional Asmnt/Malnutrition Start: 12/13/18 13: 11 Text: Status: Active Freq: Protocol: Document 12/13/18 13:11 [email or web address] (Rec: 12/13/18 13:29 [email or web address] SEAN) Nutritional Asmnt/Malnutrition Patient General Information Nutritional Screening High Risk Diagnosis sepsis, hyponatremia, hypokalemia, UTI & dehydration Pertinent Medical Hx/Surgical Hx COPD, resp failure on vent via trach, Gtube, sepsis, dysphagia, hepatic failure, anemia, edema, cardiomyopathy, AFIb, TIA/stroke, gout, hypothyroidism, CKD Subjective Information Pt was seen resting in bed at time of visit, glucerna 1.2 running at 60ml/hr. Renal doctor has been consulted for elevated BUN/Cr levels per RN. Previous tube feeding order found in chart was glucerna 1. 5 @60ml/hr continuous noted. Will continue with glucerna 1. 2 at 60ml/hr continuous as it meets 100% of nutrition needs, providing 1728kcal and 86g protein. Current Diet Order/ Nutrition Support glucerna 1.2 @ 60ml/hr continuous Pertinent Medications vit c, colace, epogen, iron, novolog, levemir, lactulose, synthroid, theragran, zofran, protonix, piperacillin, renvela, NaCl 0.9%, vit b complex w/vit c Pertinent Labs 12/13 Na 132, K 3.2, Cl 89, BUN 125, Cr 1.6, glucose 238, Mg 3.1, Triglycerides 813, cholesterol 397, POC 251-272 12/12 Na 125, K 3.2, Cl 76, BUN 151, Cr 1.9, Glucose 237, Alb 4.0 Nutritional Hx/Data Height 1.65 m Height (Calculated Centimeters) 165.1 Current Weight (lbs) 67.132 kg Weight (Calculated Kilograms) 67.1 Weight (Calculated Grams) 66150.7 [place] Body Weight 125 Body Mass Index (BMI) 24.6 Weight Status Approriate GI Symptoms GI Symptoms None Last BM 12/13 Food Allergies No Skin Integrity/Comment: reddened buttocks, sintia 11 Estimated Nutritional Goals BEE in Kcals: Using Current wt Calories/Kcals/Kg 25-30 Kcals Calculated Protein: Using Current wt Protein g/k monitor renal labs Protein Calculated 67 Fluid: ml (1ml/kcal) Nutritional Problem 1. Problem Problem altered nutrition related labs Etiology renal dysfunction, hyperglycemia, fluid/ electrolyte imbalance Signs/Symptoms: Na 132, K 3.2, Cl 89, BUN 125, Cr 1.6, glucose 238, POC 251- 272 Malnutrition Alert Is there a minimum of two criteria No selected? Query Text:Check all the applicable criteria. A minimum of two criteria are recommended for diagnosis of either severe or non-severe malnutrition. Malnutrition Related to Morbid Obesity Malnutrition related to morbid obesity No Intervention/Recommendation Comments 1. Continue with glucerna 1.2 @60ml/hr continous. It provides 1728kcal, 86g protein , 1159ml free water, meeting 100% of nutritional needs. Monitor renal labs. If BUN/ Crea continue elevated, will consider decrease protein intake. 2. Monitor TF rate, tolerance, wt, skin integrity and labs 3. F/U as high risk in 2-3 days Expected Outcomes/Goals Expected Outcomes/Goals 1. Pt to meet at least 75% of nutritional needs via nutrition support with tolerance 2. Wt stability, skin to remain intact, labs to approach WNL. Reviewed by Denise Nolasco RD
--- NOTE | 2018-12-14 16:04 | Consultation ---
DATE OF CONSULTATION: 12/13/[address] Silva for this consultation. HISTORY OF PRESENT ILLNESS: This is a 68-year-old female with history of chronic respiratory failure, ventilator dependent, presented with sepsis, and hypotension. The patient was admitted for further treatment and management. Cultures were sent. Started on empiric IV antibiotics. The patient has stabilized. The blood pressure is stable now. She has history of cardiomyopathy, COPD, G-tube feeding, ventilator support, and liver problems. The patient upon presentation was found to be severe dehydration and elevated BUN and creatinine, started on IV fluids. The patient is awake, alert, now comfortable, in no distress. SOCIAL HISTORY: Not available. REVIEW OF SYSTEMS: Unable to obtain because of the patient's condition. PHYSICAL EXAMINATION: GENERAL: The patient is on vent, no distress. VITAL SIGNS: Temperature is 98.8, pulse 79, respiration is 16, blood pressure 112/55, saturation 98%. HEENT: Atraumatic, normocephalic. Pupils react to light and accommodation. Ears, nose and throat normal. NECK: Supple. No JVD. CHEST: There are scattered rhonchi bilaterally, no wheezing. HEART: Regular rate and rhythm. No murmurs. ABDOMEN: Soft. EXTREMITIES: No edema. LABORATORY DATA: WBC 15.2, hemoglobin 8.4, hematocrit 24.2, platelets 355. ABGs: pH 7.47, pCO2 of 39, pO2 of 104, bicarbonate 28, saturation oxygen 98%. Sodium 132, potassium 3.2, BUN was 125, creatinine 1.6, and now ___ and creatinine 1.9. Chest x-ray showed no obvious infiltrate, tracheostomy tube in place. IMPRESSION: This is a 68-year-old female with, 1. Respiratory failure. 2. Sepsis. 3. Rule out pneumonia. 4. Dehydration and acute renal failure. PLAN: 1. Continue ventilator support. 2. Antibiotics. 3. Pulmonary toilet and supportive care, ventilator support and follow-up chest x-ray and cultures. We will follow the patient with you. Thank you very much for this consultation. JOB# [id number]
--- NOTE | 2018-12-14 16:49 | Consultation ---
DATE OF CONSULTATION: 12/14/2018 REFERRING PHYSICIAN: Dr. Silva. REASON FOR CONSULTATION: Leukocytosis. HISTORY OF PRESENT ILLNESS: The patient is a 68-year-old female with a past medical history of chronic kidney disease, respiratory failure, on vent dependence, chronic liver disease, hypertension, hypothyroidism, diabetes mellitus type 2, chronic obstructive pulmonary disease, dementia, gout, and transient ischemic attack, brought in because of abnormal labs. At the nursing facility, the patient's BUN is 150, creatinine 1.9, and sodium 124. Her hemoglobin was also 9.0. Prior to her transfer, her temperature was 99.2 degrees Fahrenheit. She was brought to the ER for further evaluation. On initial evaluation, her temperature was 98.7 degrees Fahrenheit and WBC count was 14,300. Chest x-ray showed right lung changes with left basal lung markings which may be due to subsegmental atelectasis, vent infiltrate of left base is less likely, but cannot be excluded. No focal consolidation; suspect trace left pleural effusion, mild cardiomegaly. The patient was started on IV fluid as well as started on Zosyn. Lactic acid was also elevated at 3.86. ID consult was called for further evaluation and management. The patient is unresponsive, unable to give any history. PAST MEDICAL HISTORY: Includes history of pneumonia, effusion, sepsis, respiratory failure, on ventilator, dysphagia, G-tube placement, tracheostomy placement, hepatic failure ____ chronic kidney disease, generalized edema, hypertension, hypertensive heart disease, hypothyroidism, diabetes mellitus type 2, diabetic nephropathy, anemia of chronic disease, chronic obstructive pulmonary disease, dementia, cardiomyopathy, persistent vegetative status, gout, protein calorie mellitus, atrial fibrillation, vitamin D deficiency, history of transient ischemic attack and cerebrovascular accident in the past. ALLERGIES: NKDA. MEDICATIONS: As per medication reconciliation sheet. Antibiotic mckeon, the patient is receiving Zosyn. FAMILY HISTORY: Not available. SOCIAL HISTORY: The patient lives at nursing facility, [facility]. No history of smoking, alcohol or drug use. REVIEW OF SYSTEMS: Unable to obtain. No fever. PHYSICAL EXAMINATION: GENERAL: The patient is cachectic, not in acute distress, on the ventilator, status post tracheostomy. VITAL SIGNS: Temperature 98.2, pulse 74, respirations 15, and blood pressure 136/35. HEENT: Head is normocephalic, atraumatic. Oral cavity moist, pink tongue. Eyes: Pallor is present, no icterus. NECK: Trach site is clear. CHEST: Bilateral breath sounds. Crackles present. HEART: S1, S2 within normal limits. Regular rhythm. No murmur, no gallop. ABDOMEN: Soft, nontender, and nondistended. Bowel sounds present. EXTREMITIES: No cyanosis, no clubbing, no edema. NEUROLOGIC: Unresponsive vegetative status. LABORATORY DATA: Current lab shows WBC count is 11,100, hemoglobin 8.3, hematocrit 24.3, platelets are 343,000, and neutrophil is 85%. Sodium 143, potassium 4.2, chloride 106, bicarbonate is 24.7, BUN is 79, creatinine 1.4, glucose is 190. Lactic acid is 2.53. Sputum culture is showing more than 10 squamous epithelial cells, poor specimen, so further workup was not done. Blood culture 2 sets are negative. Chest x-ray shows allowing for poor inspiration, noted to have acute focal parenchymal disease at this time. IMPRESSION: 1. Leukocytosis, lactic acidosis, suspect sepsis. 2. Pneumonia, radiologically clear. 3. Diabetes mellitus type 2. 4. Acute renal failure on chronic renal disease, improving. 5. Lactic acidosis. 6. Respiratory failure, on ventilator. 7. Chronic liver disease. 8. Hypertension. 9. Hypothyroidism. 10. Diabetes mellitus type 2. 11. Chronic obstructive pulmonary disease. 12. Dementia. 13. Cerebrovascular accident, transient ischemic attack. 14. History of gout. PLAN AND RECOMMENDATIONS: We will continue on Zosyn and check the lactic acid in the morning. Thank you, Dr. Silva for involving me in taking care of this patient. JOB# [id number]
[2018-12-14] MEDS ORDERED: Chlorhexidine Gluconate 0.12% 15mL Mouthwash MM SCH (20:00)
[2018-12-14] MEDS: Docusate Sodium 100 mg/10 mL UD GT SCH (20:35)
--- NOTE | 2018-12-14 20:47 | History & Physical ---
ADMIT DATE: 12/13/2018 CHIEF COMPLAINT: Abnormal labs. HISTORY OF PRESENT ILLNESS: This is a 68-year-old female with a subacute resident, admitted to the ICU unit due to abnormal labs of BUN 150, potassium is 3.2. The patient was also noted to have an elevated white count, also lactic acid was elevated in the ER; therefore, sepsis protocol was initiated. PAST MEDICAL HISTORY: Pneumonia effusion, VDRF, respiratory failure, chronic kidney disease, hypertension, hypertensive heart disease, hypothyroidism, type 2 diabetes, diabetic neuropathy, anemia of chronic disease, COPD, dementia, cardiomyopathy, gout, protein-calorie malnutrition, AFib, vitamin D deficiency, TIA, CVA. SURGICAL HISTORY: PEG and trach. ALLERGIES: No drug allergies. MEDICATIONS: Please see medication sheet. FAMILY HISTORY: Noncontributory. REVIEW OF SYSTEMS: Unable to obtain, the patient is nonverbal. PHYSICAL EXAMINATION: GENERAL: Thin elderly female, appears chronically ill, in no apparent distress. VITAL SIGNS: Temperature 98.0, heart rate 73, blood pressure 119/59, O2 of 99%. HEENT: Head; normocephalic, atraumatic. NECK: Supple. No mass. LUNGS: Rhonchi bilaterally. HEART: Regular rhythm. ABDOMEN: Soft, nontender, nondistended. EXTREMITIES: No edema noted. LABORATORY DATA: WBC 11.1, H and H 8.3 and 24.3, platelet of 343. Sodium 142, potassium 4.2, chloride 106, BUN 79, creatinine 1.4, lactic acid 2.72. DIAGNOSTICS: The patient had a chest x-ray, impression is poor inspiration, noted to have acute focal parenchymal disease. ASSESSMENT: Lactic acidosis, rule out sepsis, pneumonia, type 2 diabetes, ventilator dependent respiratory failure, acute on chronic respiratory failure, acute on chronic renal failure, chronic liver disease, hypertension, hypothyroidism, type 2 diabetes, chronic obstructive pulmonary disease, dementia, CVA, transient ischemic attack. PLAN: The patient to be admitted to the ICU unit. We will get Infectious Disease, Pulmonology, ID on the case. We will continue the patient on sepsis protocol, antibiotics. We will get followup labs for tomorrow morning. We will continue to monitor this patient. JOB# [id number]
[2018-12-15] MEDS: Albuterol Nebulizer 2.5mg/3mL HHN PRN ×4 (00:42→14:41)
[2018-12-15 05:10] LABS: HEMOGLOBIN 8.1 gm/dL (12-16); MEAN CELL VOLUME 101.7 fl (81-100); MEAN CORPUSCULAR HEMOGLOBIN 34.1 pg (27.0-31.0); MEAN CORPUSCULAR HGB CONC 33.5 pg (28.0-36.0); MEAN PLATELET VOLUME 6.6 fl; PLATELET COUNT 325 Th/cmm (150-400); RED BLOOD COUNT 2.36 Mil/cmm (3.80-5.20); RED CELL DISTRIBUTION WIDTH 16.8 % (11.5-20.0); WHITE BLOOD COUNT 10.5 Th/cmm (4.8-10.8)
[2018-12-15 05:12] LABS: ANION GAP 17.6 (7.0-16.0); CALCIUM SERUM 8.2 mg/dL (8.6-10.3); CARBON DIOXIDE 19.4 mEq/L (21.0-31.0); CREATININE - SERUM 1.3 mg/dL (0.6-1.2); GFR AFRICAN-AMERICAN 52.7 ml/min (>90); GFR NON AFRICAN-AMERICAN 43.6 ml/min
[2018-12-15 05:25] LABS: % LYMPHOCYTES 7.2 % (20.0-50.0); % MONOCYTES 4.7 % (2.0-10.0)
[2018-12-15 05:26] LABS: % BASOPHILS 0.4 % (0.0-2.0); % EOSINOPHILS 6.2 % (0.0-5.0); % NEUTROPHILS 81.5 % (40.0-80.0); EOSINOPHILE ABSOLUTE 0.4 Th/cmm (0.1-0.4); LYMPHOCYTE ABSOLUTE 0.4 Th/cmm (1.5-3.0); MONOCYTE ABSOLUTE 0.3 Th/cmm (0.3-1.0); NEUTROPHILE ABSOLUTE 5.1 Th/cmm (1.8-8.0)
[2018-12-15 05:27] LABS: BASOPHIL 0.4 % (0-3); EOSINOPHIL 6.2 % (0-5); LYMPHOCYTE 7.2 % (20-50); MONOCYTE 4.7 % (2-10); NEUTROPHILS 81.5 % (40-80)
[2018-12-15] MEDS: Piperacillin/Tazobact 2.25 gm in 0.9% NS 50 ML IV SCH ×4 (05:58→23:57)
[2018-12-15] MEDS: INSULIN ASPART SLIDING SCALE 100 UNITS/ML UNIT SUBQ SCH ×3 (05:58→17:13)
[2018-12-15] MEDS: Dextrose 5% 1,000 ML IV SCH ×2 (06:32→20:27)
[2018-12-15] MEDS: Levothyroxine 0.125 Mg Tab GT SCH (08:38)
[2018-12-15] MEDS: Ferrous Sulfate 300 MG/5 ML UDC GT SCH (08:39)
[2018-12-15] MEDS: Multivitamin w/ Minerals 15 mL UDC GT SCH (08:39)
[2018-12-15] MEDS: Vitamin B Complex w/Vitamin C Tab GT SCH (08:39)
[2018-12-15] MEDS: Insulin Detemir 100 units/mL 10mL Vial SUBQ SCH ×2 (08:40→17:14)
[2018-12-15] MEDS: Chlorhexidine Gluconate 0.12% 15mL Mouthwash MM SCH ×2 (08:40→19:22)
[2018-12-15] MEDS: Lactulose 10 Gm/15 mL 30mL UDC GT SCH ×2 (08:41→17:16)
--- NOTE | 2018-12-15 10:24 | Infectious Disease Prog Note ---
Infectious Disease Subjective - Review of Systems Service Date: 12/15/18 Subjective: No new change.. No fever. Infectious Disease Objective - Results Result Diagrams: 12/15/18 04:00 12/15/18 04:00 Recent Labs: Laboratory Last Values WBC 10.5 Th/cmm (4.8-10.8) 12/15/18 04:00 RBC 2.36 Mil/cmm (3.80-5.20) L 12/15/18 04:00 Hgb 8.1 gm/dL (12-16) L 12/15/18 04:00 Hct 24.0 % (41.0-60) L 12/15/18 04:00 MCV 101.7 fl (81-100) H 12/15/18 04:00 MCH 34.1 pg (27.0-31.0) H 12/15/18 04:00 MCHC Differential 33.5 pg (28.0-36.0) 12/15/18 04:00 RDW 16.8 % (11.5-20.0) 12/15/18 04:00 Plt Count 325 Th/cmm (150-400) 12/15/18 04:00 MPV 6.6 fl 12/15/18 04:00 Add Manual Diff YES 12/14/18 04:51 Neutrophils % 81.5 % (40.0-80.0) H 12/15/18 04:00 Band Neutrophils % 0 % (0-10) 12/14/18 04:51 Lymphocytes % 7.2 % (20.0-50.0) L 12/15/18 04:00 Monocytes % 4.7 % (2.0-10.0) 12/15/18 04:00 Eosinophils % 6.2 % (0.0-5.0) H 12/15/18 04:00 Basophils % 0.4 % (0.0-2.0) 12/15/18 04:00 Neutrophils (Manual) 81.5 % (40-80) H 12/15/18 04:00 Lymphocytes 7.2 % (20-50) L 12/15/18 04:00 Monocytes 4.7 % (2-10) 12/15/18 04:00 Eosinophils 6.2 % (0-5) H 12/15/18 04:00 Basophils 0.4 % (0-3) 12/15/18 04:00 Eos Smear Source URINE 12/13/18 15:00 Eos Smear Total Cells NONE SEEN (NONE SEEN) 12/13/18 15:00 Specimen Source Arterial 12/13/18 09:05 Sample Site LB 12/13/18 09:05 pH 7.47 (7.35-7.45) H 12/13/18 09:05 pCO2 39.0 mmHg (35.0-45.0) 12/13/18 09:05 pO2 104.0 mmHg (80.0-100.0) H 12/13/18 09:05 HCO3 28.4 mEq/L (20.0-26.0) H 12/13/18 09:05 Base Excess 4.4 mEq/L (-3.0-3.0) H 12/13/18 09:05 O2 Saturation 98.0 % (92.0-100.0) 12/13/18 09:05 Vent Rate 16 12/13/18 09:05 Inspired O2 28 12/13/18 09:05 Tidal Volume 450 12/13/18 09:05 PEEP 5 12/13/18 09:05 Critical Value PW 12/13/18 09:05 Sodium 148 mEq/L (136-145) H 12/15/18 04:00 Potassium 5.0 mEq/L (3.5-5.1) 12/15/18 04:00 Chloride 116 mEq/L (98-107) H 12/15/18 04:00 Carbon Dioxide 19.4 mEq/L (21.0-31.0) L 12/15/18 04:00 Anion Gap 17.6 (7.0-16.0) H 12/15/18 04:00 BUN 52 mg/dL (7-25) H 12/15/18 04:00 Creatinine 1.3 mg/dL (0.6-1.2) H 12/15/18 04:00 Est GFR ( Amer) 52.7 ml/min (>90) 12/15/18 04:00 Est GFR (Non-Af Amer) 43.6 ml/min 12/15/18 04:00 BUN/Creatinine Ratio 40.0 12/15/18 04:00 Glucose 197 mg/dL (70-105) H 12/15/18 04:00 POC Glucose 217 MG/DL (70 - 105) H 12/15/18 08:37 Plasma/Ser Osmolality 342 mOsmol/kg (280-301) H 12/13/18 15:00 Whole Bld Lactic Acid 2.60 mmol/L (0.60-1.99) H* 12/15/18 06:00 Uric Acid 6.3 mg/dL (2.3-6.6) 12/14/18 04:51 Calcium 8.2 mg/dL (8.6-10.3) L 12/15/18 04:00 Phosphorus 2.0 mg/dL (2.5-5.0) L 12/15/18 04:00 Magnesium 2.9 mg/dL (1.9-2.7) H 12/14/18 04:51 Total Bilirubin 0.8 mg/dL (0.3-1.0) 12/14/18 04:51 AST 69 U/L (13-39) H 12/14/18 04:51 ALT 89 U/L (7-52) H 12/14/18 04:51 Alkaline Phosphatase 99 U/L (34-104) 12/14/18 04:51 Ammonia 38 umol/L (16-53) 12/14/18 08:10 Troponin I 0.05 ng/mL (0.01-0.05) 12/12/18 20:15 B-Natriuretic Peptide 146.0 pg/mL (5.0-100.0) H 12/13/18 04:25 Total Protein 6.7 gm/dL (6.0-8.3) 12/14/18 04:51 Albumin 3.2 gm/dL (3.7-5.3) L 12/14/18 04:51 Globulin 3.5 gm/dL 12/14/18 04:51 Albumin/Globulin Ratio 0.9 (1.0-1.8) L 12/14/18 04:51 Triglycerides 813 mg/dL (<150) H 12/13/18 04:25 Cholesterol 397 mg/dL (<200) H 12/13/18 04:25 LDL Cholesterol Direct 187 mg/dL (75-193) 12/13/18 04:25 HDL Cholesterol 34 mg/dL (23-92) 12/13/18 04:25 Lipase 174 U/L (11-82) H 12/14/18 04:51 TSH 3.28 uIU/ml (0.34-5.60) 12/13/18 04:25 Urine Source CLEAN C 12/12/18 20:30 Urine Color YELLOW 12/12/18 20:30 Urine Clarity HAZY (CLEAR) 12/12/18 20:30 Urine pH 5.5 (4.6 - 8.0) 12/12/18 20:30 Ur Specific [place] 1.010 (1.005-1.030) 12/12/18 20:30 Urine Protein NEGATIVE mg/dL (NEGATIVE) 12/12/18 20:30 Urine Glucose (UA) NEGATIVE mg/dL (NEGATIVE) 12/12/18 20:30 Urine Ketones NEGATIVE mg/dL (NEGATIVE) 12/12/18 20:30 Urine Blood NEGATIVE (NEGATIVE) 12/12/18 20:30 Urine Nitrate NEGATIVE (NEGATIVE) 12/12/18 20:30 Urine Bilirubin NEGATIVE (NEGATIVE) 12/12/18 20:30 Urine Urobilinogen 0.2 E.U./dL (0.2 - 1.0) 12/12/18 20:30 Ur Leukocyte Esterase SMALL (NEGATIVE) H 12/12/18 20:30 Urine RBC 5-10 /hpf (0-5) H 12/12/18 20:30 Urine WBC 2-5 /hpf (0-5) 12/12/18 20:30 Ur Epithelial Cells RARE /lpf (FEW) 12/12/18 20:30 Amorphous Sediment FEW URATES (NONE SEEN) 12/12/18 20:30 Urine Bacteria FEW /hpf (NONE SEEN) 12/12/18 20:30 Urine Yeast FEW /hpf (NONE SEEN) H 12/12/18 20:30 Ur Random Sodium 28 mmol/L 12/13/18 15:00 Urine Creatinine 22.0 mg/dl (28.0-217.0) L 12/13/18 15:00 Microalb/Creat Ratio 291.5 mg/g creat (0.0-30.0) H 12/13/18 15:00 - Physical Exam Vitals and I&O: Vital Signs Temp 99.0 F 12/15/18 06:00 Pulse 82 12/15/18 09:16 Resp 16 12/15/18 06:00 BP 139/78 12/15/18 06:00 Pulse Ox 98 12/15/18 09:16 Intake & Output 12/14/18 12/15/18 12/15/18 18:59 06:59 18:59 Intake Total 1672.5 2605 Output Total 2550 Balance 1672.5 55 Weight (lbs) 67.585 kg Intake: Intake, IV Amount 1672.5 1100 Piperacillin Sodium/ 100 100 Tazobact 2.25 gm In Sodium Chloride 0.9% 50 ml @ 100 mls/hr IV Q6HR [facility] Rx#:[id number] Sodium Chloride 0.9% 1, 1572.5 1000 000 ml @ 150 mls/hr IV . Q6H40M [facility] Rx#:[id number] Tube Feeding 1045 Other 460 Output: Urine 2550 Other: # Bowel Movements 2 Stool Characteristics Liquid Liquid Brown Brown Weight Source Bedscale Active Medications: Current Medications Acetaminophen (Tylenol) 650 mg PO Q4HR PRN PRN Reason: Pain or Fever >101 Stop: 02/11/19 10:22 Albuterol Sulfate (Albuterol 2.5mg/3ml Neb Ud) 2.5 mg HHN Q2HR PRN PRN Reason: Shortness of Breath Stop: 02/11/19 10:22 Last Admin: 12/15/18 07:16 Dose: 2.5 mg Allopurinol (Zyloprim) 100 mg GT DAILY [facility] Stop: 02/13/19 08:59 Last Admin: 12/15/18 08:39 Dose: 100 mg Ascorbic Acid (Vitamin C) 500 mg GT DAILY [facility] Stop: 02/12/19 08:59 Last Admin: 12/15/18 08:39 Dose: 500 mg Chlorhexidine Gluconate (Peridex) 15 ml MM 0800,2000 [facility] Stop: 02/12/19 08:59 Last Admin: 12/15/18 08:40 Dose: 15 ml Docusate Sodium (Colace) 200 mg GT HS [facility] Stop: 02/11/19 20:59 Last Admin: 12/14/18 20:35 Dose: Not Given Epoetin Ranjit (Epogen) 3,000 units SUBQ MWF@1600 [facility] Stop: 02/11/19 15:59 Last Admin: 12/13/18 16:57 Dose: 3,000 units Ferrous Sulfate (Iron) 7.5 mg GT DAILY [facility] Stop: 02/12/19 08:59 Last Admin: 12/15/18 08:39 Dose: 7.5 mg Piperacillin Sod/Tazobactam (Sod 2.25 gm/ Sodium Chloride) 50 mls @ 100 mls/hr IV Q6HR [facility] Stop: 02/11/19 00:00 Last Infusion: 12/15/18 06:30 Dose: Infused Dextrose (D5w) 1,000 mls @ 75 mls/hr IV .[id number] [facility] Stop: 02/13/19 06:29 Last Admin: 12/15/18 06:32 Dose: 75 mls/hr Insulin Aspart (Novolog Insulin Sliding Scale) 0 units SUBQ Q6HR [facility]; Protocol Stop: 02/11/19 00:00 Last Admin: 12/15/18 05:58 Dose: 2 units Insulin Detemir (Levemir Insulin) 35 units SUBQ BID [facility]; Protocol Stop: 02/11/19 16:59 Last Admin: 12/15/18 08:40 Dose: 35 units Lactulose (Cephulac) 20 gm GT BID [facility] Stop: 02/11/19 16:59 Last Admin: 12/15/18 08:41 Dose: Not Given Levothyroxine Sodium (Synthroid) 0.125 mg GT QDAC [facility] Stop: 02/12/19 07:29 Last Admin: 12/15/18 08:38 Dose: 0.125 mg Miscellaneous (Vte Chemical Prophylaxis Screen/ Admission) 1 ea MC PRN PRN PRN Reason: PROTOCOL Stop: 02/11/19 15:55 Multivitamins/Minerals (Theragran M) 15 ml GT DAILY [facility] Stop: 02/12/19 08:59 Last Admin: 12/15/18 08:39 Dose: 15 ml Mupirocin (Bactroban Oint) 1 appl NS BID [facility] Stop: 12/19/18 09:01 Last Admin: 12/15/18 08:40 Dose: 1 appl Ondansetron HCl (Zofran Odt) 4 mg PO Q6HR PRN PRN Reason: Nausea Pantoprazole Sodium (Protonix) 40 mg IVP DAILY [facility] Stop: 02/11/19 08:59 Last Admin: 12/15/18 08:39 Dose: 40 mg Vitamin B Complex/Vit C/Folic Acid (Vitamin B Complex W/Vitamin C) 1 tab GT DAILY [facility] Stop: 02/12/19 08:59 Last Admin: 12/15/18 08:39 Dose: 1 tab General: no acute distress, well developed, well nourished HEENT: atraumatic, normocephalic, PERRLA, EOMI, moist mucous membrane Neck: supple, tracheostomy, no lymphadenopathy Cardiovascular: S1S2, regular Lungs: clear to auscultation bilaterally, clear to percussion Abdomen: soft, bowel sounds, no tender, no distended, no mass, no rebound Extremities: no cyanosis, no clubbing Neurological: awake, other (aphasic, open eyes.) - Procedures Procedures: Procedures Procedure Code Date RESPIRATORY VENTILATION, 24-96 CONSECUTIVE HOURS [id number] 12/12/18 Infectious Disease Assmt/Plan - Assessment Assessment: 1. Leukocytosis, lactic acidosis, suspect sepsis. 2. Pneumonia, radiologically clear. 3. Diabetes mellitus type 2. 4. Acute renal failure on chronic renal disease, improving. 5. Lactic acidosis. 6. Respiratory failure, on ventilator. 7. Chronic liver disease. 8. Hypertension. 9. Hypothyroidism. 10. Diabetes mellitus type 2. 11. Chronic obstructive pulmonary disease. 12. Dementia. 13. Cerebrovascular accident, transient ischemic attack. 14. History of gout. - Plan Plan: Continue same treatment. check labs in am, and IVF. Nutritional Asmnt/Malnutr-PDOC - Dietary Evaluation Malnutrition Findings (Please click <Entered> for more info): Nutritional Asmnt/Malnutrition Start: 12/13/18 13: 11 Text: Status: Active Freq: Protocol: Document 12/13/18 13:11 [email or web address] (Rec: 12/13/18 13:29 [email or web address] SEAN) Nutritional Asmnt/Malnutrition Patient General Information Nutritional Screening High Risk Diagnosis sepsis, hyponatremia, hypokalemia, UTI & dehydration Pertinent Medical Hx/Surgical Hx COPD, resp failure on vent via trach, Gtube, sepsis, dysphagia, hepatic failure, anemia, edema, cardiomyopathy, AFIb, TIA/stroke, gout, hypothyroidism, CKD Subjective Information Pt was seen resting in bed at time of visit, glucerna 1.2 running at 60ml/hr. Renal doctor has been consulted for elevated BUN/Cr levels per RN. Previous tube feeding order found in chart was glucerna 1. 5 @60ml/hr continuous noted. Will continue with glucerna 1. 2 at 60ml/hr continuous as it meets 100% of nutrition needs, providing 1728kcal and 86g protein. Current Diet Order/ Nutrition Support glucerna 1.2 @ 60ml/hr continuous Pertinent Medications vit c, colace, epogen, iron, novolog, levemir, lactulose, synthroid, theragran, zofran, protonix, piperacillin, renvela, NaCl 0.9%, vit b complex w/vit c Pertinent Labs 12/13 Na 132, K 3.2, Cl 89, BUN 125, Cr 1.6, glucose 238, Mg 3.1, Triglycerides 813, cholesterol 397, POC 251-272 12/12 Na 125, K 3.2, Cl 76, BUN 151, Cr 1.9, Glucose 237, Alb 4.0 Nutritional Hx/Data Height 1.65 m Height (Calculated Centimeters) 165.1 Current Weight (lbs) 67.132 kg Weight (Calculated Kilograms) 67.1 Weight (Calculated Grams) 47690.7 [place] Body Weight 125 Body Mass Index (BMI) 24.6 Weight Status Approriate GI Symptoms GI Symptoms None Last BM 12/13 Food Allergies No Skin Integrity/Comment: reddened buttocks, sintia 11 Estimated Nutritional Goals BEE in Kcals: Using Current wt Calories/Kcals/Kg 25-30 Kcals Calculated Protein: Using Current wt Protein g/k monitor renal labs Protein Calculated 67 Fluid: ml (1ml/kcal) Nutritional Problem 1. Problem Problem altered nutrition related labs Etiology renal dysfunction, hyperglycemia, fluid/ electrolyte imbalance Signs/Symptoms: Na 132, K 3.2, Cl 89, BUN 125, Cr 1.6, glucose 238, POC 251- 272 Malnutrition Alert Is there a minimum of two criteria No selected? Query Text:Check all the applicable criteria. A minimum of two criteria are recommended for diagnosis of either severe or non-severe malnutrition. Malnutrition Related to Morbid Obesity Malnutrition related to morbid obesity No Intervention/Recommendation Comments 1. Continue with glucerna 1.2 @60ml/hr continous. It provides 1728kcal, 86g protein , 1159ml free water, meeting 100% of nutritional needs. Monitor renal labs. If BUN/ Crea continue elevated, will consider decrease protein intake. 2. Monitor TF rate, tolerance, wt, skin integrity and labs 3. F/U as high risk in 2-3 days Expected Outcomes/Goals Expected Outcomes/Goals 1. Pt to meet at least 75% of nutritional needs via nutrition support with tolerance 2. Wt stability, skin to remain intact, labs to approach WNL. Reviewed by Denise Nolasco RD
--- NOTE | 2018-12-15 13:27 | General Progress Note ---
Subjective - Review of Systems Service Date: 12/15/18 Subjective: more awake, interacting, on vent Objective - Results Result Diagrams: 12/15/18 04:00 12/15/18 04:00 Recent Labs: Laboratory Last Values WBC 10.5 Th/cmm (4.8-10.8) 12/15/18 04:00 RBC 2.36 Mil/cmm (3.80-5.20) L 12/15/18 04:00 Hgb 8.1 gm/dL (12-16) L 12/15/18 04:00 Hct 24.0 % (41.0-60) L 12/15/18 04:00 MCV 101.7 fl (81-100) H 12/15/18 04:00 MCH 34.1 pg (27.0-31.0) H 12/15/18 04:00 MCHC Differential 33.5 pg (28.0-36.0) 12/15/18 04:00 RDW 16.8 % (11.5-20.0) 12/15/18 04:00 Plt Count 325 Th/cmm (150-400) 12/15/18 04:00 MPV 6.6 fl 12/15/18 04:00 Add Manual Diff YES 12/14/18 04:51 Neutrophils % 81.5 % (40.0-80.0) H 12/15/18 04:00 Band Neutrophils % 0 % (0-10) 12/14/18 04:51 Lymphocytes % 7.2 % (20.0-50.0) L 12/15/18 04:00 Monocytes % 4.7 % (2.0-10.0) 12/15/18 04:00 Eosinophils % 6.2 % (0.0-5.0) H 12/15/18 04:00 Basophils % 0.4 % (0.0-2.0) 12/15/18 04:00 Neutrophils (Manual) 81.5 % (40-80) H 12/15/18 04:00 Lymphocytes 7.2 % (20-50) L 12/15/18 04:00 Monocytes 4.7 % (2-10) 12/15/18 04:00 Eosinophils 6.2 % (0-5) H 12/15/18 04:00 Basophils 0.4 % (0-3) 12/15/18 04:00 Eos Smear Source URINE 12/13/18 15:00 Eos Smear Total Cells NONE SEEN (NONE SEEN) 12/13/18 15:00 Specimen Source Arterial 12/13/18 09:05 Sample Site LB 12/13/18 09:05 pH 7.47 (7.35-7.45) H 12/13/18 09:05 pCO2 39.0 mmHg (35.0-45.0) 12/13/18 09:05 pO2 104.0 mmHg (80.0-100.0) H 12/13/18 09:05 HCO3 28.4 mEq/L (20.0-26.0) H 12/13/18 09:05 Base Excess 4.4 mEq/L (-3.0-3.0) H 12/13/18 09:05 O2 Saturation 98.0 % (92.0-100.0) 12/13/18 09:05 Vent Rate 16 12/13/18 09:05 Inspired O2 28 12/13/18 09:05 Tidal Volume 450 12/13/18 09:05 PEEP 5 12/13/18 09:05 Critical Value PW 12/13/18 09:05 Sodium 148 mEq/L (136-145) H 12/15/18 04:00 Potassium 5.0 mEq/L (3.5-5.1) 12/15/18 04:00 Chloride 116 mEq/L (98-107) H 12/15/18 04:00 Carbon Dioxide 19.4 mEq/L (21.0-31.0) L 12/15/18 04:00 Anion Gap 17.6 (7.0-16.0) H 12/15/18 04:00 BUN 52 mg/dL (7-25) H 12/15/18 04:00 Creatinine 1.3 mg/dL (0.6-1.2) H 12/15/18 04:00 Est GFR ( Amer) 52.7 ml/min (>90) 12/15/18 04:00 Est GFR (Non-Af Amer) 43.6 ml/min 12/15/18 04:00 BUN/Creatinine Ratio 40.0 12/15/18 04:00 Glucose 197 mg/dL (70-105) H 12/15/18 04:00 POC Glucose 202 MG/DL (70 - 105) H 12/15/18 11:49 Plasma/Ser Osmolality 342 mOsmol/kg (280-301) H 12/13/18 15:00 Whole Bld Lactic Acid 2.60 mmol/L (0.60-1.99) H* 12/15/18 06:00 Uric Acid 6.3 mg/dL (2.3-6.6) 12/14/18 04:51 Calcium 8.2 mg/dL (8.6-10.3) L 12/15/18 04:00 Phosphorus 2.0 mg/dL (2.5-5.0) L 12/15/18 04:00 Magnesium 2.9 mg/dL (1.9-2.7) H 12/14/18 04:51 Total Bilirubin 0.8 mg/dL (0.3-1.0) 12/14/18 04:51 AST 69 U/L (13-39) H 12/14/18 04:51 ALT 89 U/L (7-52) H 12/14/18 04:51 Alkaline Phosphatase 99 U/L (34-104) 12/14/18 04:51 Ammonia 38 umol/L (16-53) 12/14/18 08:10 Troponin I 0.05 ng/mL (0.01-0.05) 12/12/18 20:15 B-Natriuretic Peptide 146.0 pg/mL (5.0-100.0) H 12/13/18 04:25 Total Protein 6.7 gm/dL (6.0-8.3) 12/14/18 04:51 Albumin 3.2 gm/dL (3.7-5.3) L 12/14/18 04:51 Globulin 3.5 gm/dL 12/14/18 04:51 Albumin/Globulin Ratio 0.9 (1.0-1.8) L 12/14/18 04:51 Triglycerides 813 mg/dL (<150) H 12/13/18 04:25 Cholesterol 397 mg/dL (<200) H 12/13/18 04:25 LDL Cholesterol Direct 187 mg/dL (75-193) 12/13/18 04:25 HDL Cholesterol 34 mg/dL (23-92) 12/13/18 04:25 Lipase 174 U/L (11-82) H 12/14/18 04:51 TSH 3.28 uIU/ml (0.34-5.60) 12/13/18 04:25 Urine Source CLEAN C 12/12/18 20:30 Urine Color YELLOW 12/12/18 20:30 Urine Clarity HAZY (CLEAR) 12/12/18 20:30 Urine pH 5.5 (4.6 - 8.0) 12/12/18 20:30 Ur Specific [place] 1.010 (1.005-1.030) 12/12/18 20:30 Urine Protein NEGATIVE mg/dL (NEGATIVE) 12/12/18 20:30 Urine Glucose (UA) NEGATIVE mg/dL (NEGATIVE) 12/12/18 20:30 Urine Ketones NEGATIVE mg/dL (NEGATIVE) 12/12/18 20:30 Urine Blood NEGATIVE (NEGATIVE) 12/12/18 20:30 Urine Nitrate NEGATIVE (NEGATIVE) 12/12/18 20:30 Urine Bilirubin NEGATIVE (NEGATIVE) 12/12/18 20:30 Urine Urobilinogen 0.2 E.U./dL (0.2 - 1.0) 12/12/18 20:30 Ur Leukocyte Esterase SMALL (NEGATIVE) H 12/12/18 20:30 Urine RBC 5-10 /hpf (0-5) H 12/12/18 20:30 Urine WBC 2-5 /hpf (0-5) 12/12/18 20:30 Ur Epithelial Cells RARE /lpf (FEW) 12/12/18 20:30 Amorphous Sediment FEW URATES (NONE SEEN) 12/12/18 20:30 Urine Bacteria FEW /hpf (NONE SEEN) 12/12/18 20:30 Urine Yeast FEW /hpf (NONE SEEN) H 12/12/18 20:30 Ur Random Sodium 28 mmol/L 12/13/18 15:00 Urine Creatinine 22.0 mg/dl (28.0-217.0) L 12/13/18 15:00 Microalb/Creat Ratio 291.5 mg/g creat (0.0-30.0) H 12/13/18 15:00 - Physical Exam Vitals and I&O: Vital Signs Temp 99.4 F 12/15/18 08:00 Pulse 82 12/15/18 12:40 Resp 22 12/15/18 10:00 BP 125/60 12/15/18 10:00 Pulse Ox 100 12/15/18 12:40 Intake & Output 12/14/18 12/15/18 12/15/18 18:59 06:59 18:59 Intake Total 1672.5 2605 Output Total 2550 Balance 1672.5 55 Weight (lbs) 67.585 kg Intake: Intake, IV Amount 1672.5 1100 Piperacillin Sodium/ 100 100 Tazobact 2.25 gm In Sodium Chloride 0.9% 50 ml @ 100 mls/hr IV Q6HR [facility] Rx#:[id number] Sodium Chloride 0.9% 1, 1572.5 1000 000 ml @ 150 mls/hr IV . Q6H40M [facility] Rx#:[id number] Tube Feeding 1045 Other 460 Output: Urine 2550 Other: # Bowel Movements 2 Stool Characteristics Liquid Liquid Liquid Brown Brown Brown Weight Source Bedscale Active Medications: Current Medications Acetaminophen (Tylenol) 650 mg PO Q4HR PRN PRN Reason: Pain or Fever >101 Stop: 02/11/19 10:22 Albuterol Sulfate (Albuterol 2.5mg/3ml Neb Ud) 2.5 mg HHN Q2HR PRN PRN Reason: Shortness of Breath Stop: 02/11/19 10:22 Last Admin: 12/15/18 10:37 Dose: 2.5 mg Allopurinol (Zyloprim) 100 mg GT DAILY [facility] Stop: 02/13/19 08:59 Last Admin: 12/15/18 08:39 Dose: 100 mg Ascorbic Acid (Vitamin C) 500 mg GT DAILY [facility] Stop: 02/12/19 08:59 Last Admin: 12/15/18 08:39 Dose: 500 mg Chlorhexidine Gluconate (Peridex) 15 ml MM 0800,2000 [facility] Stop: 02/12/19 08:59 Last Admin: 12/15/18 08:40 Dose: 15 ml Docusate Sodium (Colace) 200 mg GT HS [facility] Stop: 02/11/19 20:59 Last Admin: 12/14/18 20:35 Dose: Not Given Epoetin Ranjit (Epogen) 3,000 units SUBQ MWF@1600 [facility] Stop: 02/11/19 15:59 Last Admin: 12/13/18 16:57 Dose: 3,000 units Ferrous Sulfate (Iron) 7.5 mg GT DAILY [facility] Stop: 02/12/19 08:59 Last Admin: 12/15/18 08:39 Dose: 7.5 mg Piperacillin Sod/Tazobactam (Sod 2.25 gm/ Sodium Chloride) 50 mls @ 100 mls/hr IV Q6HR [facility] Stop: 02/11/19 00:00 Last Admin: 12/15/18 12:14 Dose: 100 mls/hr Dextrose (D5w) 1,000 mls @ 75 mls/hr IV .[id number] [facility] Stop: 02/13/19 06:29 Last Admin: 12/15/18 06:32 Dose: 75 mls/hr Insulin Aspart (Novolog Insulin Sliding Scale) 0 units SUBQ Q6HR [facility]; Protocol Stop: 02/11/19 00:00 Last Admin: 12/15/18 12:13 Dose: 4 units Insulin Detemir (Levemir Insulin) 35 units SUBQ BID [facility]; Protocol Stop: 02/11/19 16:59 Last Admin: 12/15/18 08:40 Dose: 35 units Lactulose (Cephulac) 20 gm GT BID [facility] Stop: 02/11/19 16:59 Last Admin: 12/15/18 08:41 Dose: Not Given Levothyroxine Sodium (Synthroid) 0.125 mg GT QDAC [facility] Stop: 02/12/19 07:29 Last Admin: 12/15/18 08:38 Dose: 0.125 mg Miscellaneous (Vte Chemical Prophylaxis Screen/ Admission) 1 ea MC PRN PRN PRN Reason: PROTOCOL Stop: 02/11/19 15:55 Multivitamins/Minerals (Theragran M) 15 ml GT DAILY [facility] Stop: 02/12/19 08:59 Last Admin: 12/15/18 08:39 Dose: 15 ml Mupirocin (Bactroban Oint) 1 appl NS BID [facility] Stop: 12/19/18 09:01 Last Admin: 12/15/18 08:40 Dose: 1 appl Ondansetron HCl (Zofran Odt) 4 mg PO Q6HR PRN PRN Reason: Nausea Pantoprazole Sodium (Protonix) 40 mg IVP DAILY [facility] Stop: 02/11/19 08:59 Last Admin: 12/15/18 08:39 Dose: 40 mg Vitamin B Complex/Vit C/Folic Acid (Vitamin B Complex W/Vitamin C) 1 tab GT DAILY [facility] Stop: 02/12/19 08:59 Last Admin: 12/15/18 08:39 Dose: 1 tab General: Alert, No acute distress HEENT: Atraumatic, Mucous membr. moist/pink Neck: Supple, +2 carotid pulse wo bruit Cardiovascular: Regular rate, Normal S1, Normal S2 Lungs: Normal air movement Abdomen: Bowel sounds, Soft, Hepatomegaly Extremities: no Edema Neurological: Sensation intact Skin: no Rash Psych/Mental Status: Mood NL - Procedures Procedures: Procedures Procedure Code Date RESPIRATORY VENTILATION, 24-96 CONSECUTIVE HOURS [id number] 12/12/18 Assessment/Plan - Assessment Assessment: KOLBY on CKD RFVD Electrolyte Imbalance Sepsei 2/2 Cx UTI Chronic Liver Failure 2/2 NAFLD Dyslipidemia Ess Htn T2DM GB Stones - Plan Plan: Lab - Result Diagrams 12/14/18 04:51 12/14/18 04:51 Current Medications Acetaminophen (Tylenol) 650 mg PO Q4HR PRN PRN Reason: Pain or Fever >101 Stop: 02/11/19 10:22 Albuterol Sulfate (Albuterol 2.5mg/3ml Neb Ud) 2.5 mg HHN Q2HR PRN PRN Reason: Shortness of Breath Stop: 02/11/19 10:22 Last Admin: 12/14/18 13:22 Dose: 2.5 mg Allopurinol (Zyloprim) 300 mg GT DAILY [facility] Stop: 02/12/19 08:59 Last Admin: 12/14/18 09:25 Dose: Not Given Ascorbic Acid (Vitamin C) 500 mg GT DAILY [facility] Stop: 02/12/19 08:59 Last Admin: 12/14/18 09:25 Dose: Not Given Chlorhexidine Gluconate (Peridex) 15 ml MM 0800,2000 [facility] Stop: 02/12/19 08:59 Last Admin: 12/14/18 09:23 Dose: 15 ml Docusate Sodium (Colace) 200 mg GT HS [facility] Stop: 02/11/19 20:59 Last Admin: 12/13/18 21:45 Dose: Not Given Epoetin Ranjit (Epogen) 3,000 units SUBQ MWF@1600 [facility] Stop: 02/11/19 15:59 Last Admin: 12/13/18 16:57 Dose: 3,000 units Ferrous Sulfate (Iron) 7.5 mg GT DAILY [facility] Stop: 02/12/19 08:59 Last Admin: 12/14/18 09:26 Dose: Not Given Sodium Chloride (Nacl 0.9%) 1,000 mls @ 150 mls/hr IV .Q6H40M [facility] Stop: 02/10/19 22:59 Last Admin: 12/14/18 09:27 Dose: 150 mls/hr Piperacillin Sod/Tazobactam (Sod 2.25 gm/ Sodium Chloride) 50 mls @ 100 mls/hr IV Q6HR [facility] Stop: 02/11/19 00:00 Last Infusion: 12/14/18 12:35 Dose: Infused Insulin Aspart (Novolog Insulin Sliding Scale) 0 units SUBQ Q6HR [facility]; Protocol Stop: 02/11/19 00:00 Last Admin: 12/14/18 12:04 Dose: 2 units Insulin Detemir (Levemir Insulin) 35 units SUBQ BID [facility]; Protocol Stop: 02/11/19 16:59 Last Admin: 12/14/18 09:20 Dose: 35 units Lactulose (Cephulac) 20 gm GT BID [facility] Stop: 02/11/19 16:59 Last Admin: 12/14/18 09:26 Dose: Not Given Levothyroxine Sodium (Synthroid) 0.125 mg GT QDAC [facility] Stop: 02/12/19 07:29 Last Admin: 12/14/18 06:51 Dose: Not Given Miscellaneous (Vte Chemical Prophylaxis Screen/ Admission) 1 ea PRN PRN PRN Reason: PROTOCOL Stop: 02/11/19 15:55 Multivitamins/Minerals (Theragran M) 15 ml GT DAILY [facility] Stop: 02/12/19 08:59 Last Admin: 12/14/18 09:26 Dose: Not Given Ondansetron HCl (Zofran Odt) 4 mg PO Q6HR PRN PRN Reason: Nausea Pantoprazole Sodium (Protonix) 40 mg IVP DAILY [facility] Stop: 02/11/19 08:59 Last Admin: 12/14/18 09:19 Dose: 40 mg Sevelamer Carbonate (Renvela) 800 mg PO TID [facility] Stop: 02/11/19 13:59 Last Admin: 12/14/18 13:23 Dose: 800 mg Vitamin B Complex/Vit C/Folic Acid (Vitamin B Complex W/Vitamin C) 1 tab GT DAILY [facility] Stop: 02/12/19 08:59 Last Admin: 12/14/18 09:26 Dose: Not Lab - Result Diagrams 12/15/18 04:00 12/15/18 04:00 Kidney fnc better w/ BUN/CR of 52/1.3 good UOP FENa 1.25% suggestive of intrinsic kidney failure replace P04 switch to D5W, monitor BS closely f/u electrolytes, cbc low P04 due to sevelamer Nutritional Asmnt/Malnutr-PDOC - Dietary Evaluation Malnutrition Findings (Please click <Entered> for more info): Nutritional Asmnt/Malnutrition Start: 12/13/18 13: 11 Text: Status: Active Freq: Protocol: Document 12/13/18 13:11 [email or web address] (Rec: 12/13/18 13:29 [email or web address] SEAN) Nutritional Asmnt/Malnutrition Patient General Information Nutritional Screening High Risk Diagnosis sepsis, hyponatremia, hypokalemia, UTI & dehydration Pertinent Medical Hx/Surgical Hx COPD, resp failure on vent via trach, Gtube, sepsis, dysphagia, hepatic failure, anemia, edema, cardiomyopathy, AFIb, TIA/stroke, gout, hypothyroidism, CKD Subjective Information Pt was seen resting in bed at time of visit, glucerna 1.2 running at 60ml/hr. Renal doctor has been consulted for elevated BUN/Cr levels per RN. Previous tube feeding order found in chart was glucerna 1. 5 @60ml/hr continuous noted. Will continue with glucerna 1. 2 at 60ml/hr continuous as it meets 100% of nutrition needs, providing 1728kcal and 86g protein. Current Diet Order/ Nutrition Support glucerna 1.2 @ 60ml/hr continuous Pertinent Medications vit c, colace, epogen, iron, novolog, levemir, lactulose, synthroid, theragran, zofran, protonix, piperacillin, renvela, NaCl 0.9%, vit b complex w/vit c Pertinent Labs 12/13 Na 132, K 3.2, Cl 89, BUN 125, Cr 1.6, glucose 238, Mg 3.1, Triglycerides 813, cholesterol 397, POC 251-272 12/12 Na 125, K 3.2, Cl 76, BUN 151, Cr 1.9, Glucose 237, Alb 4.0 Nutritional Hx/Data Height 1.65 m Height (Calculated Centimeters) 165.1 Current Weight (lbs) 67.132 kg Weight (Calculated Kilograms) 67.1 Weight (Calculated Grams) 94594.7 [place] Body Weight 125 Body Mass Index (BMI) 24.6 Weight Status Approriate GI Symptoms GI Symptoms None Last BM 12/13 Food Allergies No Skin Integrity/Comment: reddened buttocks, sintia 11 Estimated Nutritional Goals BEE in Kcals: Using Current wt Calories/Kcals/Kg 25-30 Kcals Calculated Protein: Using Current wt Protein g/k monitor renal labs Protein Calculated 67 Fluid: ml (1ml/kcal) Nutritional Problem 1. Problem Problem altered nutrition related labs Etiology renal dysfunction, hyperglycemia, fluid/ electrolyte imbalance Signs/Symptoms: Na 132, K 3.2, Cl 89, BUN 125, Cr 1.6, glucose 238, POC 251- 272 Malnutrition Alert Is there a minimum of two criteria No selected? Query Text:Check all the applicable criteria. A minimum of two criteria are recommended for diagnosis of either severe or non-severe malnutrition. Malnutrition Related to Morbid Obesity Malnutrition related to morbid obesity No Intervention/Recommendation Comments 1. Continue with glucerna 1.2 @60ml/hr continous. It provides 1728kcal, 86g protein , 1159ml free water, meeting 100% of nutritional needs. Monitor renal labs. If BUN/ Crea continue elevated, will consider decrease protein intake. 2. Monitor TF rate, tolerance, wt, skin integrity and labs 3. F/U as high risk in 2-3 days Expected Outcomes/Goals Expected Outcomes/Goals 1. Pt to meet at least 75% of nutritional needs via nutrition support with tolerance 2. Wt stability, skin to remain intact, labs to approach WNL. Reviewed by Denise Nolasco RD
--- NOTE | 2018-12-15 17:01 | Internal Medicine Prog Note ---
Internal Medicine Subjective - Subjective Patient seen and examined:: chart reviewed Patient is:: asleep Per staff patient has:: no adverse event Internal Medicine Objective - Results Result Diagrams: 12/17/18 09:27 12/17/18 09:27 Recent Labs: Laboratory Last Values WBC 10.5 Th/cmm (4.8-10.8) 12/15/18 04:00 RBC 2.36 Mil/cmm (3.80-5.20) L 12/15/18 04:00 Hgb 8.1 gm/dL (12-16) L 12/15/18 04:00 Hct 24.0 % (41.0-60) L 12/15/18 04:00 MCV 101.7 fl (81-100) H 12/15/18 04:00 MCH 34.1 pg (27.0-31.0) H 12/15/18 04:00 MCHC Differential 33.5 pg (28.0-36.0) 12/15/18 04:00 RDW 16.8 % (11.5-20.0) 12/15/18 04:00 Plt Count 325 Th/cmm (150-400) 12/15/18 04:00 MPV 6.6 fl 12/15/18 04:00 Add Manual Diff YES 12/14/18 04:51 Neutrophils % 81.5 % (40.0-80.0) H 12/15/18 04:00 Band Neutrophils % 0 % (0-10) 12/14/18 04:51 Lymphocytes % 7.2 % (20.0-50.0) L 12/15/18 04:00 Monocytes % 4.7 % (2.0-10.0) 12/15/18 04:00 Eosinophils % 6.2 % (0.0-5.0) H 12/15/18 04:00 Basophils % 0.4 % (0.0-2.0) 12/15/18 04:00 Neutrophils (Manual) 81.5 % (40-80) H 12/15/18 04:00 Lymphocytes 7.2 % (20-50) L 12/15/18 04:00 Monocytes 4.7 % (2-10) 12/15/18 04:00 Eosinophils 6.2 % (0-5) H 12/15/18 04:00 Basophils 0.4 % (0-3) 12/15/18 04:00 Eos Smear Source URINE 12/13/18 15:00 Eos Smear Total Cells NONE SEEN (NONE SEEN) 12/13/18 15:00 Specimen Source Arterial 12/13/18 09:05 Sample Site LB 12/13/18 09:05 pH 7.47 (7.35-7.45) H 12/13/18 09:05 pCO2 39.0 mmHg (35.0-45.0) 12/13/18 09:05 pO2 104.0 mmHg (80.0-100.0) H 12/13/18 09:05 HCO3 28.4 mEq/L (20.0-26.0) H 12/13/18 09:05 Base Excess 4.4 mEq/L (-3.0-3.0) H 12/13/18 09:05 O2 Saturation 98.0 % (92.0-100.0) 12/13/18 09:05 Vent Rate 16 12/13/18 09:05 Inspired O2 28 12/13/18 09:05 Tidal Volume 450 12/13/18 09:05 PEEP 5 12/13/18 09:05 Critical Value PW 12/13/18 09:05 Sodium 148 mEq/L (136-145) H 12/15/18 04:00 Potassium 5.0 mEq/L (3.5-5.1) 12/15/18 04:00 Chloride 116 mEq/L (98-107) H 12/15/18 04:00 Carbon Dioxide 19.4 mEq/L (21.0-31.0) L 12/15/18 04:00 Anion Gap 17.6 (7.0-16.0) H 12/15/18 04:00 BUN 52 mg/dL (7-25) H 12/15/18 04:00 Creatinine 1.3 mg/dL (0.6-1.2) H 12/15/18 04:00 Est GFR ( Amer) 52.7 ml/min (>90) 12/15/18 04:00 Est GFR (Non-Af Amer) 43.6 ml/min 12/15/18 04:00 BUN/Creatinine Ratio 40.0 12/15/18 04:00 Glucose 197 mg/dL (70-105) H 12/15/18 04:00 POC Glucose 202 MG/DL (70 - 105) H 12/15/18 11:49 Plasma/Ser Osmolality 342 mOsmol/kg (280-301) H 12/13/18 15:00 Whole Bld Lactic Acid 2.60 mmol/L (0.60-1.99) H* 12/15/18 06:00 Uric Acid 6.3 mg/dL (2.3-6.6) 12/14/18 04:51 Calcium 8.2 mg/dL (8.6-10.3) L 12/15/18 04:00 Phosphorus 2.0 mg/dL (2.5-5.0) L 12/15/18 04:00 Magnesium 2.9 mg/dL (1.9-2.7) H 12/14/18 04:51 Total Bilirubin 0.8 mg/dL (0.3-1.0) 12/14/18 04:51 AST 69 U/L (13-39) H 12/14/18 04:51 ALT 89 U/L (7-52) H 12/14/18 04:51 Alkaline Phosphatase 99 U/L (34-104) 12/14/18 04:51 Ammonia 38 umol/L (16-53) 12/14/18 08:10 Troponin I 0.05 ng/mL (0.01-0.05) 12/12/18 20:15 B-Natriuretic Peptide 146.0 pg/mL (5.0-100.0) H 12/13/18 04:25 Total Protein 6.7 gm/dL (6.0-8.3) 12/14/18 04:51 Albumin 3.2 gm/dL (3.7-5.3) L 12/14/18 04:51 Globulin 3.5 gm/dL 12/14/18 04:51 Albumin/Globulin Ratio 0.9 (1.0-1.8) L 12/14/18 04:51 Triglycerides 813 mg/dL (<150) H 12/13/18 04:25 Cholesterol 397 mg/dL (<200) H 12/13/18 04:25 LDL Cholesterol Direct 187 mg/dL (75-193) 12/13/18 04:25 HDL Cholesterol 34 mg/dL (23-92) 12/13/18 04:25 Lipase 174 U/L (11-82) H 12/14/18 04:51 TSH 3.28 uIU/ml (0.34-5.60) 12/13/18 04:25 Urine Source CLEAN C 12/12/18 20:30 Urine Color YELLOW 12/12/18 20:30 Urine Clarity HAZY (CLEAR) 12/12/18 20:30 Urine pH 5.5 (4.6 - 8.0) 12/12/18 20:30 Ur Specific [place] 1.010 (1.005-1.030) 12/12/18 20:30 Urine Protein NEGATIVE mg/dL (NEGATIVE) 12/12/18 20:30 Urine Glucose (UA) NEGATIVE mg/dL (NEGATIVE) 12/12/18 20:30 Urine Ketones NEGATIVE mg/dL (NEGATIVE) 12/12/18 20:30 Urine Blood NEGATIVE (NEGATIVE) 12/12/18 20:30 Urine Nitrate NEGATIVE (NEGATIVE) 12/12/18 20:30 Urine Bilirubin NEGATIVE (NEGATIVE) 12/12/18 20:30 Urine Urobilinogen 0.2 E.U./dL (0.2 - 1.0) 12/12/18 20:30 Ur Leukocyte Esterase SMALL (NEGATIVE) H 12/12/18 20:30 Urine RBC 5-10 /hpf (0-5) H 12/12/18 20:30 Urine WBC 2-5 /hpf (0-5) 12/12/18 20:30 Ur Epithelial Cells RARE /lpf (FEW) 12/12/18 20:30 Amorphous Sediment FEW URATES (NONE SEEN) 12/12/18 20:30 Urine Bacteria FEW /hpf (NONE SEEN) 12/12/18 20:30 Urine Yeast FEW /hpf (NONE SEEN) H 12/12/18 20:30 Ur Random Sodium 28 mmol/L 12/13/18 15:00 Urine Creatinine 22.0 mg/dl (28.0-217.0) L 12/13/18 15:00 Microalb/Creat Ratio 291.5 mg/g creat (0.0-30.0) H 12/13/18 15:00 - Physical Exam Vitals and I&O: Vital Signs Temp 97.7 F 12/15/18 12:00 Pulse 82 12/15/18 16:00 Resp 22 12/15/18 16:00 BP 139/70 12/15/18 16:00 Pulse Ox 100 12/15/18 16:00 Intake & Output 12/14/18 12/15/18 12/15/18 18:59 06:59 18:59 Intake Total 1672.5 2605 Output Total 2550 Balance 1672.5 55 Weight (lbs) 67.585 kg Intake: Intake, IV Amount 1672.5 1100 Piperacillin Sodium/ 100 100 Tazobact 2.25 gm In Sodium Chloride 0.9% 50 ml @ 100 mls/hr IV Q6HR [facility] Rx#:[id number] Sodium Chloride 0.9% 1, 1572.5 1000 000 ml @ 150 mls/hr IV . Q6H40M [facility] Rx#:[id number] Tube Feeding 1045 Other 460 Output: Urine 2550 Other: # Bowel Movements 2 Stool Characteristics Liquid Liquid Liquid Brown Brown Brown Weight Source Bedscale Active Medications: Current Medications Acetaminophen (Tylenol) 650 mg PO Q4HR PRN PRN Reason: Pain or Fever >101 Stop: 02/11/19 10:22 Albuterol Sulfate (Albuterol 2.5mg/3ml Neb Ud) 2.5 mg HHN Q2HR PRN PRN Reason: Shortness of Breath Stop: 02/11/19 10:22 Last Admin: 12/15/18 14:41 Dose: 2.5 mg Allopurinol (Zyloprim) 100 mg GT DAILY [facility] Stop: 02/13/19 08:59 Last Admin: 12/15/18 08:39 Dose: 100 mg Ascorbic Acid (Vitamin C) 500 mg GT DAILY [facility] Stop: 02/12/19 08:59 Last Admin: 12/15/18 08:39 Dose: 500 mg Chlorhexidine Gluconate (Peridex) 15 ml MM 0800,1999 [facility] Stop: 02/12/19 08:59 Last Admin: 12/15/18 08:40 Dose: 15 ml Docusate Sodium (Colace) 200 mg GT HS [facility] Stop: 02/11/19 20:59 Last Admin: 12/14/18 20:35 Dose: Not Given Epoetin Ranjit (Epogen) 3,000 units SUBQ MWF@1600 [facility] Stop: 02/11/19 15:59 Last Admin: 12/13/18 16:57 Dose: 3,000 units Ferrous Sulfate (Iron) 7.5 mg GT DAILY [facility] Stop: 02/12/19 08:59 Last Admin: 12/15/18 08:39 Dose: 7.5 mg Piperacillin Sod/Tazobactam (Sod 2.25 gm/ Sodium Chloride) 50 mls @ 100 mls/hr IV Q6HR [facility] Stop: 02/11/19 00:00 Last Admin: 12/15/18 12:14 Dose: 100 mls/hr Dextrose (D5w) 1,000 mls @ 75 mls/hr IV .[id number] [facility] Stop: 02/13/19 06:29 Last Admin: 12/15/18 06:32 Dose: 75 mls/hr Insulin Aspart (Novolog Insulin Sliding Scale) 0 units SUBQ Q6HR [facility]; Protocol Stop: 02/11/19 00:00 Last Admin: 12/15/18 12:13 Dose: 4 units Insulin Detemir (Levemir Insulin) 35 units SUBQ BID [facility]; Protocol Stop: 02/11/19 16:59 Last Admin: 12/15/18 08:40 Dose: 35 units Lactulose (Cephulac) 20 gm GT BID [facility] Stop: 02/11/19 16:59 Last Admin: 12/15/18 08:41 Dose: Not Given Levothyroxine Sodium (Synthroid) 0.125 mg GT QDAC [facility] Stop: 02/12/19 07:29 Last Admin: 12/15/18 08:38 Dose: 0.125 mg Miscellaneous (Vte Chemical Prophylaxis Screen/ Admission) 1 ea [facility] PRN PRN PRN Reason: PROTOCOL Stop: 02/11/19 15:55 Multivitamins/Minerals (Theragran M) 15 ml GT DAILY [facility] Stop: 02/12/19 08:59 Last Admin: 12/15/18 08:39 Dose: 15 ml Mupirocin (Bactroban Oint) 1 appl NS BID [facility] Stop: 12/19/18 09:01 Last Admin: 12/15/18 08:40 Dose: 1 appl Ondansetron HCl (Zofran Odt) 4 mg PO Q6HR PRN PRN Reason: Nausea Pantoprazole Sodium (Protonix) 40 mg IVP DAILY [facility] Stop: 02/11/19 08:59 Last Admin: 12/15/18 08:39 Dose: 40 mg Vitamin B Complex/Vit C/Folic Acid (Vitamin B Complex W/Vitamin C) 1 tab GT DAILY [facility] Stop: 02/12/19 08:59 Last Admin: 12/15/18 08:39 Dose: 1 tab General: weak, lethargic HEENT: NC/AT Neck: Supple Lungs: ronchi Cardiovascular: RRR, Normal S1, Normal S2 Abdomen: soft, non-tender Extremities: clear Neurological: no change - Procedures Procedures: Procedures Procedure Code Date RESPIRATORY VENTILATION, 24-96 CONSECUTIVE HOURS [id number] 12/12/18 Internal Medicine Assmt/Plan - Assessment Assessment: Leukocytosis, lactic acidosis, suspect sepsis. Pneumonia, radiologically clear. Diabetes mellitus type 2. Acute renal failure on chronic renal disease, improving. Lactic acidosis. Respiratory failure, on ventilator. Chronic liver disease. Hypertension. Hypothyroidism. Diabetes mellitus type 2. Chronic obstructive pulmonary disease. Dementia. Cerebrovascular accident, transient ischemic attack. History of gout. - Plan Plan: as per order sheet Nutritional Asmnt/Malnutr-PDOC - Dietary Evaluation Malnutrition Findings (Please click <Entered> for more info): Nutritional Asmnt/Malnutrition Start: 12/13/18 13: 11 Text: Status: Active Freq: Protocol: Document 12/13/18 13:11 [email or web address] (Rec: 12/13/18 13:29 [email or web address] SEAN) Nutritional Asmnt/Malnutrition Patient General Information Nutritional Screening High Risk Diagnosis sepsis, hyponatremia, hypokalemia, UTI & dehydration Pertinent Medical Hx/Surgical Hx COPD, resp failure on vent via trach, Gtube, sepsis, dysphagia, hepatic failure, anemia, edema, cardiomyopathy, AFIb, TIA/stroke, gout, hypothyroidism, CKD Subjective Information Pt was seen resting in bed at time of visit, glucerna 1.2 running at 60ml/hr. Renal doctor has been consulted for elevated BUN/Cr levels per RN. Previous tube feeding order found in chart was glucerna 1. 5 @60ml/hr continuous noted. Will continue with glucerna 1. 2 at 60ml/hr continuous as it meets 100% of nutrition needs, providing 1728kcal and 86g protein. Current Diet Order/ Nutrition Support glucerna 1.2 @ 60ml/hr continuous Pertinent Medications vit c, colace, epogen, iron, novolog, levemir, lactulose, synthroid, theragran, zofran, protonix, piperacillin, renvela, NaCl 0.9%, vit b complex w/vit c Pertinent Labs 12/13 Na 132, K 3.2, Cl 89, BUN 125, Cr 1.6, glucose 238, Mg 3.1, Triglycerides 813, cholesterol 397, POC 251-272 12/12 Na 125, K 3.2, Cl 76, BUN 151, Cr 1.9, Glucose 237, Alb 4.0 Nutritional Hx/Data Height 1.65 m Height (Calculated Centimeters) 165.1 Current Weight (lbs) 67.132 kg Weight (Calculated Kilograms) 67.1 Weight (Calculated Grams) 63145.7 [place] Body Weight 125 Body Mass Index (BMI) 24.6 Weight Status Approriate GI Symptoms GI Symptoms None Last BM 12/13 Food Allergies No Skin Integrity/Comment: reddened buttocks, sintia 11 Estimated Nutritional Goals BEE in Kcals: Using Current wt Calories/Kcals/Kg 25-30 Kcals Calculated Protein: Using Current wt Protein g/k monitor renal labs Protein Calculated 67 Fluid: ml (1ml/kcal) Nutritional Problem 1. Problem Problem altered nutrition related labs Etiology renal dysfunction, hyperglycemia, fluid/ electrolyte imbalance Signs/Symptoms: Na 132, K 3.2, Cl 89, BUN 125, Cr 1.6, glucose 238, POC 251- 272 Malnutrition Alert Is there a minimum of two criteria No selected? Query Text:Check all the applicable criteria. A minimum of two criteria are recommended for diagnosis of either severe or non-severe malnutrition. Malnutrition Related to Morbid Obesity Malnutrition related to morbid obesity No Intervention/Recommendation Comments 1. Continue with glucerna 1.2 @60ml/hr continous. It provides 1728kcal, 86g protein , 1159ml free water, meeting 100% of nutritional needs. Monitor renal labs. If BUN/ Crea continue elevated, will consider decrease protein intake. 2. Monitor TF rate, tolerance, wt, skin integrity and labs 3. F/U as high risk in 2-3 days Expected Outcomes/Goals Expected Outcomes/Goals 1. Pt to meet at least 75% of nutritional needs via nutrition support with tolerance 2. Wt stability, skin to remain intact, labs to approach WNL. Reviewed by Denise Nolasco RD
[2018-12-15] MEDS: Epoetin Alfa 20000 Units/mL Vial SUBQ SCH (17:13)
[2018-12-15] MEDS: Docusate Sodium 100 mg/10 mL UD GT SCH (20:27)
[2018-12-16] MEDS: INSULIN ASPART SLIDING SCALE 100 UNITS/ML UNIT SUBQ SCH ×5 (00:03→23:25)
[2018-12-16] MEDS: Albuterol Nebulizer 2.5mg/3mL HHN PRN ×3 (01:50→23:04)
[2018-12-16 04:44] LABS: RED BLOOD COUNT 2.35 Mil/cmm (3.80-5.20)
[2018-12-16 04:53] LABS: % BASOPHILS 0.6 % (0.0-2.0); % EOSINOPHILS 5.8 % (0.0-5.0); % LYMPHOCYTES 7.4 % (20.0-50.0); % MONOCYTES 3.9 % (2.0-10.0); % NEUTROPHILS 82.3 % (40.0-80.0); BASOPHILE ABSOLUTE 0.1 Th/cumm (0-0.2); EOSINOPHILE ABSOLUTE 0.8 Th/cmm (0.1-0.4); HEMATOCRIT 23.8 % (41.0-60); LYMPHOCYTE ABSOLUTE 1.1 Th/cmm (1.5-3.0); MEAN CELL VOLUME 101.2 fl (81-100); MEAN CORPUSCULAR HEMOGLOBIN 34.2 pg (27.0-31.0); MEAN CORPUSCULAR HGB CONC 33.8 pg (28.0-36.0); MEAN PLATELET VOLUME 6.5 fl; MONOCYTE ABSOLUTE 0.6 Th/cmm (0.3-1.0); NEUTROPHILE ABSOLUTE 11.9 Th/cmm (1.8-8.0); PLATELET COUNT 355 Th/cmm (150-400); RED CELL DISTRIBUTION WIDTH 16.4 % (11.5-20.0); WHITE BLOOD COUNT 14.5 Th/cmm (4.8-10.8)
[2018-12-16 05:35] LABS: CALCIUM SERUM 8.1 mg/dL (8.6-10.3); CARBON DIOXIDE 20.1 mEq/L (21.0-31.0); CREATININE - SERUM 1.2 mg/dL (0.6-1.2); GFR AFRICAN-AMERICAN 57.8 ml/min (>90); GFR NON AFRICAN-AMERICAN 47.8 ml/min; POTASSIUM SERUM 5.1 mEq/L (3.5-5.1)
[2018-12-16 05:39] LABS: NEUTROPHILS 85 % (40-80)
[2018-12-16 05:40] LABS: EOSINOPHIL 3 % (0-5); LYMPHOCYTE 6 % (20-50); MONOCYTE 6 % (2-10)
[2018-12-16] MEDS: Piperacillin/Tazobact 2.25 gm in 0.9% NS 50 ML IV SCH ×4 (05:43→23:13)
[2018-12-16] MEDS: Levothyroxine 0.125 Mg Tab GT SCH (09:00)
[2018-12-16] MEDS: Multivitamin w/ Minerals 15 mL UDC GT SCH (09:00)
[2018-12-16] MEDS: Ferrous Sulfate 300 MG/5 ML UDC GT SCH (09:00)
[2018-12-16] MEDS: Vitamin B Complex w/Vitamin C Tab GT SCH (09:00)
[2018-12-16] MEDS: Insulin Detemir 100 units/mL 10mL Vial SUBQ SCH ×2 (09:01→17:49)
[2018-12-16] MEDS: Chlorhexidine Gluconate 0.12% 15mL Mouthwash MM SCH ×2 (09:01→20:32)
[2018-12-16] MEDS: Dextrose 5% 1,000 ML IV SCH (09:44)
[2018-12-16] MEDS ORDERED: Vancomycin HCl 1.5 GM in Sodium Chloride 0.9% 500 ML IV SCH (13:00)
[2018-12-16] MEDS ORDERED: Probiotic Screen MC PRN (15:20)
--- NOTE | 2018-12-16 16:50 | Infectious Disease Prog Note ---
Infectious Disease Subjective - Review of Systems Service Date: 12/16/18 Events since last encounter: None Subjective: No new change.. No fever. Infectious Disease Objective - Results Result Diagrams: 12/16/18 04:00 12/16/18 04:00 Recent Labs: Laboratory Last Values WBC 14.5 Th/cmm (4.8-10.8) H D 12/16/18 04:00 RBC 2.35 Mil/cmm (3.80-5.20) L 12/16/18 04:00 Hgb 8.0 gm/dL (12-16) L 12/16/18 04:00 Hct 23.8 % (41.0-60) L 12/16/18 04:00 MCV 101.2 fl (81-100) H 12/16/18 04:00 MCH 34.2 pg (27.0-31.0) H 12/16/18 04:00 MCHC Differential 33.8 pg (28.0-36.0) 12/16/18 04:00 RDW 16.4 % (11.5-20.0) 12/16/18 04:00 Plt Count 355 Th/cmm (150-400) 12/16/18 04:00 MPV 6.5 fl 12/16/18 04:00 Add Manual Diff YES 12/14/18 04:51 Neutrophils % 82.3 % (40.0-80.0) H 12/16/18 04:00 Band Neutrophils % 0 % (0-10) 12/14/18 04:51 Lymphocytes % 7.4 % (20.0-50.0) L 12/16/18 04:00 Monocytes % 3.9 % (2.0-10.0) 12/16/18 04:00 Eosinophils % 5.8 % (0.0-5.0) H 12/16/18 04:00 Basophils % 0.6 % (0.0-2.0) 12/16/18 04:00 Neutrophils (Manual) 85 % (40-80) H 12/16/18 04:00 Lymphocytes 6 % (20-50) L 12/16/18 04:00 Monocytes 6 % (2-10) 12/16/18 04:00 Eosinophils 3 % (0-5) 12/16/18 04:00 Basophils 0.4 % (0-3) 12/15/18 04:00 Eos Smear Source URINE 12/13/18 15:00 Eos Smear Total Cells NONE SEEN (NONE SEEN) 12/13/18 15:00 Specimen Source Arterial 12/13/18 09:05 Sample Site LB 12/13/18 09:05 pH 7.47 (7.35-7.45) H 12/13/18 09:05 pCO2 39.0 mmHg (35.0-45.0) 12/13/18 09:05 pO2 104.0 mmHg (80.0-100.0) H 12/13/18 09:05 HCO3 28.4 mEq/L (20.0-26.0) H 12/13/18 09:05 Base Excess 4.4 mEq/L (-3.0-3.0) H 12/13/18 09:05 O2 Saturation 98.0 % (92.0-100.0) 12/13/18 09:05 Vent Rate 16 12/13/18 09:05 Inspired O2 28 12/13/18 09:05 Tidal Volume 450 12/13/18 09:05 PEEP 5 12/13/18 09:05 Critical Value PW 12/13/18 09:05 Sodium 141 mEq/L (136-145) 12/16/18 04:00 Potassium 5.1 mEq/L (3.5-5.1) 12/16/18 04:00 Chloride 109 mEq/L (98-107) H 12/16/18 04:00 Carbon Dioxide 20.1 mEq/L (21.0-31.0) L 12/16/18 04:00 Anion Gap 17.0 (7.0-16.0) H 12/16/18 04:00 BUN 37 mg/dL (7-25) H 12/16/18 04:00 Creatinine 1.2 mg/dL (0.6-1.2) 12/16/18 04:00 Est GFR ( Amer) 57.8 ml/min (>90) 12/16/18 04:00 Est GFR (Non-Af Amer) 47.8 ml/min 12/16/18 04:00 BUN/Creatinine Ratio 30.8 12/16/18 04:00 Glucose 153 mg/dL (70-105) H 12/16/18 04:00 POC Glucose 174 MG/DL (70 - 105) H 12/16/18 11:06 Plasma/Ser Osmolality 342 mOsmol/kg (280-301) H 12/13/18 15:00 Whole Bld Lactic Acid 2.59 mmol/L (0.60-1.99) H* 12/16/18 07:09 Uric Acid 6.3 mg/dL (2.3-6.6) 12/14/18 04:51 Calcium 8.1 mg/dL (8.6-10.3) L 12/16/18 04:00 Phosphorus 2.0 mg/dL (2.5-5.0) L 12/15/18 04:00 Magnesium 2.9 mg/dL (1.9-2.7) H 12/14/18 04:51 Total Bilirubin 0.8 mg/dL (0.3-1.0) 12/14/18 04:51 AST 69 U/L (13-39) H 12/14/18 04:51 ALT 89 U/L (7-52) H 12/14/18 04:51 Alkaline Phosphatase 99 U/L (34-104) 12/14/18 04:51 Ammonia 38 umol/L (16-53) 12/14/18 08:10 Troponin I 0.05 ng/mL (0.01-0.05) 12/12/18 20:15 B-Natriuretic Peptide 146.0 pg/mL (5.0-100.0) H 12/13/18 04:25 Total Protein 6.7 gm/dL (6.0-8.3) 12/14/18 04:51 Albumin 3.2 gm/dL (3.7-5.3) L 12/14/18 04:51 Globulin 3.5 gm/dL 12/14/18 04:51 Albumin/Globulin Ratio 0.9 (1.0-1.8) L 12/14/18 04:51 Triglycerides 813 mg/dL (<150) H 12/13/18 04:25 Cholesterol 397 mg/dL (<200) H 12/13/18 04:25 LDL Cholesterol Direct 187 mg/dL (75-193) 12/13/18 04:25 HDL Cholesterol 34 mg/dL (23-92) 12/13/18 04:25 Lipase 174 U/L (11-82) H 12/14/18 04:51 TSH 3.28 uIU/ml (0.34-5.60) 12/13/18 04:25 Urine Source CLEAN C 12/12/18 20:30 Urine Color YELLOW 12/12/18 20:30 Urine Clarity HAZY (CLEAR) 12/12/18 20:30 Urine pH 5.5 (4.6 - 8.0) 12/12/18 20:30 Ur Specific [place] 1.010 (1.005-1.030) 12/12/18 20:30 Urine Protein NEGATIVE mg/dL (NEGATIVE) 12/12/18 20:30 Urine Glucose (UA) NEGATIVE mg/dL (NEGATIVE) 12/12/18 20:30 Urine Ketones NEGATIVE mg/dL (NEGATIVE) 12/12/18 20:30 Urine Blood NEGATIVE (NEGATIVE) 12/12/18 20:30 Urine Nitrate NEGATIVE (NEGATIVE) 12/12/18 20:30 Urine Bilirubin NEGATIVE (NEGATIVE) 12/12/18 20:30 Urine Urobilinogen 0.2 E.U./dL (0.2 - 1.0) 12/12/18 20:30 Ur Leukocyte Esterase SMALL (NEGATIVE) H 12/12/18 20:30 Urine RBC 5-10 /hpf (0-5) H 12/12/18 20:30 Urine WBC 2-5 /hpf (0-5) 12/12/18 20:30 Ur Epithelial Cells RARE /lpf (FEW) 12/12/18 20:30 Amorphous Sediment FEW URATES (NONE SEEN) 12/12/18 20:30 Urine Bacteria FEW /hpf (NONE SEEN) 12/12/18 20:30 Urine Yeast FEW /hpf (NONE SEEN) H 12/12/18 20:30 Ur Random Sodium 28 mmol/L 12/13/18 15:00 Urine Creatinine 22.0 mg/dl (28.0-217.0) L 12/13/18 15:00 Microalb/Creat Ratio 291.5 mg/g creat (0.0-30.0) H 12/13/18 15:00 - Physical Exam Vitals and I&O: Vital Signs Temp 99.7 F 12/16/18 12:00 Pulse 73 12/16/18 16:00 Resp 23 12/16/18 16:00 BP 120/59 12/16/18 16:00 Pulse Ox 98 12/16/18 16:00 Intake & Output 12/15/18 12/16/18 12/16/18 18:59 06:59 18:59 Intake Total 300 1850 1546.25 Output Total 1100 1000 Balance -461 833 3822.25 Weight (lbs) 67.585 kg 67.857 kg Intake: Intake, IV Amount 100 1100 1546.25 Dextrose 5% 1,000 ml @ 75 1000 996.25 mls/hr IV .[id number] [facility] Rx#:[id number] Piperacillin Sodium/ 100 100 50 Tazobact 2.25 gm In Sodium Chloride 0.9% 50 ml @ 100 mls/hr IV Q6HR [facility] Rx#:[id number] Vancomycin HCl 1.5 gm In 500 Sodium Chloride 0.9% 500 ml @ 250 mls/hr IV Q24H [facility] Rx#:[id number] Tube Feeding 550 Other 200 200 Output: Urine 1100 1000 Other: # Bowel Movements 3 0 Stool Characteristics Liquid Formed Brown Brown Weight Source Bedscale Bedscale Active Medications: Current Medications Acetaminophen (Tylenol) 650 mg PO Q4HR PRN PRN Reason: Pain or Fever >101 Stop: 02/11/19 10:22 Last Admin: 12/16/18 09:40 Dose: 650 mg Albuterol Sulfate (Albuterol 2.5mg/3ml Neb Ud) 2.5 mg HHN Q2HR PRN PRN Reason: Shortness of Breath Stop: 02/11/19 10:22 Last Admin: 12/16/18 01:50 Dose: 2.5 mg Allopurinol (Zyloprim) 100 mg GT DAILY [facility] Stop: 02/13/19 08:59 Last Admin: 12/16/18 09:00 Dose: 100 mg Ascorbic Acid (Vitamin C) 500 mg GT DAILY [facility] Stop: 02/12/19 08:59 Last Admin: 12/16/18 09:01 Dose: 500 mg Chlorhexidine Gluconate (Peridex) 15 ml MM 0800,2000 [facility] Stop: 02/12/19 08:59 Last Admin: 12/16/18 09:01 Dose: 15 ml Docusate Sodium (Colace) 200 mg GT HS [facility] Stop: 02/11/19 20:59 Last Admin: 12/15/18 20:27 Dose: Not Given Epoetin Ranjit (Epogen) 3,000 units SUBQ MWF@1600 [facility] Stop: 02/11/19 15:59 Last Admin: 12/15/18 17:13 Dose: 3,000 units Ferrous Sulfate (Iron) 7.5 mg GT DAILY [facility] Stop: 02/12/19 08:59 Last Admin: 12/16/18 09:00 Dose: 7.5 mg Piperacillin Sod/Tazobactam (Sod 2.25 gm/ Sodium Chloride) 50 mls @ 100 mls/hr IV Q6HR [facility] Stop: 02/11/19 00:00 Last Infusion: 12/16/18 12:05 Dose: Infused Dextrose (D5w) 1,000 mls @ 75 mls/hr IV .[id number] [facility] Stop: 02/13/19 06:29 Last Admin: 12/16/18 09:44 Dose: 75 mls/hr Vancomycin HCl 1.5 gm/ Sodium (Chloride) 500 mls @ 250 mls/hr IV Q24H [facility] Stop: 02/14/19 12:59 Last Infusion: 12/16/18 15:45 Dose: Infused Insulin Aspart (Novolog Insulin Sliding Scale) 0 units SUBQ Q6HR [facility]; Protocol Stop: 02/11/19 00:00 Last Admin: 12/16/18 11:35 Dose: 2 units Insulin Detemir (Levemir Insulin) 35 units SUBQ BID [facility]; Protocol Stop: 02/11/19 16:59 Last Admin: 12/16/18 09:01 Dose: 35 units Lactobacillus Rhamnosus (Culturelle 15b) 1 each PO DAILY [facility] Stop: 02/14/19 15:59 Levothyroxine Sodium (Synthroid) 0.125 mg GT QDAC [facility] Stop: 02/12/19 07:29 Last Admin: 12/16/18 09:00 Dose: 0.125 mg Miscellaneous (Vte Chemical Prophylaxis Screen/ Admission) 1 ea MC PRN PRN PRN Reason: PROTOCOL Stop: 02/11/19 15:55 Miscellaneous (Vancomycin Iv Per Pharmacy) 1 ea MC PRN PRN PRN Reason: PROTOCOL Stop: 02/14/19 11:09 Miscellaneous (Probiotic Screen) 1 ea MC PRN PRN PRN Reason: PROTOCOL Stop: 02/14/19 15:19 Multivitamins/Minerals (Theragran M) 15 ml GT DAILY [facility] Stop: 02/12/19 08:59 Last Admin: 12/16/18 09:00 Dose: 15 ml Mupirocin (Bactroban Oint) 1 appl NS BID [facility] Stop: 12/19/18 09:01 Last Admin: 12/16/18 09:00 Dose: 1 appl Ondansetron HCl (Zofran Odt) 4 mg PO Q6HR PRN PRN Reason: Nausea Pantoprazole Sodium (Protonix) 40 mg IVP DAILY [facility] Stop: 02/11/19 08:59 Last Admin: 12/16/18 09:00 Dose: 40 mg Vitamin B Complex/Vit C/Folic Acid (Vitamin B Complex W/Vitamin C) 1 tab GT DAILY [facility] Stop: 02/12/19 08:59 Last Admin: 12/16/18 09:00 Dose: 1 tab General: no acute distress, well developed, well nourished HEENT: atraumatic, normocephalic, PERRLA, EOMI, moist mucous membrane Neck: supple, no thyromegaly Cardiovascular: S1S2, regular Lungs: clear to auscultation bilaterally, clear to percussion Abdomen: soft, bowel sounds, no tender, no distended, no hepatomegaly, no splenomegaly Extremities: no cyanosis, no clubbing, no edema Neurological: awake, alert, other (open eyes.) Skin: intact - Procedures Procedures: Procedures Procedure Code Date RESPIRATORY VENTILATION, 24-96 CONSECUTIVE HOURS [id number] 12/12/18 Infectious Disease Assmt/Plan - Assessment Assessment: 1. Leukocytosis, lactic acidosis, suspect sepsis. 2. Pneumonia, radiologically clear. 3. Diabetes mellitus type 2. 4. Acute renal failure on chronic renal disease, improving. 5. Lactic acidosis. 6. Respiratory failure, on ventilator. 7. Chronic liver disease. 8. Hypertension. 9. Hypothyroidism. 10. Diabetes mellitus type 2. 11. Chronic obstructive pulmonary disease. 12. Dementia. 13. Cerebrovascular accident, transient ischemic attack. 14. History of gout. - Plan Plan: Continue same treatment. check labs in am, and IVF. Nutritional Asmnt/Malnutr-PDOC - Dietary Evaluation Malnutrition Findings (Please click <Entered> for more info): Nutritional Asmnt/Malnutrition Start: 12/13/18 13: 11 Text: Status: Active Freq: Protocol: Document 12/13/18 13:11 [email or web address] (Rec: 12/13/18 13:29 [email or web address] SEAN) Nutritional Asmnt/Malnutrition Patient General Information Nutritional Screening High Risk Diagnosis sepsis, hyponatremia, hypokalemia, UTI & dehydration Pertinent Medical Hx/Surgical Hx COPD, resp failure on vent via trach, Gtube, sepsis, dysphagia, hepatic failure, anemia, edema, cardiomyopathy, AFIb, TIA/stroke, gout, hypothyroidism, CKD Subjective Information Pt was seen resting in bed at time of visit, glucerna 1.2 running at 60ml/hr. Renal doctor has been consulted for elevated BUN/Cr levels per RN. Previous tube feeding order found in chart was glucerna 1. 5 @60ml/hr continuous noted. Will continue with glucerna 1. 2 at 60ml/hr continuous as it meets 100% of nutrition needs, providing 1728kcal and 86g protein. Current Diet Order/ Nutrition Support glucerna 1.2 @ 60ml/hr continuous Pertinent Medications vit c, colace, epogen, iron, novolog, levemir, lactulose, synthroid, theragran, zofran, protonix, piperacillin, renvela, NaCl 0.9%, vit b complex w/vit c Pertinent Labs 12/13 Na 132, K 3.2, Cl 89, BUN 125, Cr 1.6, glucose 238, Mg 3.1, Triglycerides 813, cholesterol 397, POC 251-272 12/12 Na 125, K 3.2, Cl 76, BUN 151, Cr 1.9, Glucose 237, Alb 4.0 Nutritional Hx/Data Height 1.65 m Height (Calculated Centimeters) 165.1 Current Weight (lbs) 67.132 kg Weight (Calculated Kilograms) 67.1 Weight (Calculated Grams) 34334.7 [place] Body Weight 125 Body Mass Index (BMI) 24.6 Weight Status Approriate GI Symptoms GI Symptoms None Last BM 12/13 Food Allergies No Skin Integrity/Comment: reddened buttocks, sintia 11 Estimated Nutritional Goals BEE in Kcals: Using Current wt Calories/Kcals/Kg 25-30 Kcals Calculated Protein: Using Current wt Protein g/k monitor renal labs Protein Calculated 67 Fluid: ml (1ml/kcal) Nutritional Problem 1. Problem Problem altered nutrition related labs Etiology renal dysfunction, hyperglycemia, fluid/ electrolyte imbalance Signs/Symptoms: Na 132, K 3.2, Cl 89, BUN 125, Cr 1.6, glucose 238, POC 251- 272 Malnutrition Alert Is there a minimum of two criteria No selected? Query Text:Check all the applicable criteria. A minimum of two criteria are recommended for diagnosis of either severe or non-severe malnutrition. Malnutrition Related to Morbid Obesity Malnutrition related to morbid obesity No Intervention/Recommendation Comments 1. Continue with glucerna 1.2 @60ml/hr continous. It provides 1728kcal, 86g protein , 1159ml free water, meeting 100% of nutritional needs. Monitor renal labs. If BUN/ Crea continue elevated, will consider decrease protein intake. 2. Monitor TF rate, tolerance, wt, skin integrity and labs 3. F/U as high risk in 2-3 days Expected Outcomes/Goals Expected Outcomes/Goals 1. Pt to meet at least 75% of nutritional needs via nutrition support with tolerance 2. Wt stability, skin to remain intact, labs to approach WNL. Reviewed by Denise Nolasco RD
[2018-12-16] MEDS: Lactobacillus Rhamnosus GG 15 Billion CFU CAP.SPRINK PO SCH (17:51)
--- NOTE | 2018-12-16 19:42 | Progress Notes ---
DATE: 12/16/2018 SUBJECTIVE: The patient was seen in ICU. The patient is awake, but poor historian due to medical condition, otherwise the patient appears to be comfortable. Current condition is guarded. OBJECTIVE: VITAL SIGNS: Temperature 99.5, heart rate 77, blood pressure 125/63, respirations 20 and 99% oxygen saturation. HEENT: Head is atraumatic and normocephalic. Eyes: Bilateral conjunctivae are clear. Bilateral pupils equally round and reactive. NECK: Supple. No JVD. GENITOURINARY: The patient has a tracheostomy connected to ventilator. GASTROINTESTINAL: Soft and nontender without guarding. Positive bowel sounds. MUSCULOSKELETAL: No clubbing. No cyanosis. Positive muscle weakness. ASSESSMENT: 1. Sepsis. 2. Diabetes. 3. Ventilator dependent respiratory failure. 4. Acute kidney injury. 5. Chronic renal disease. 6. Hyperlipidemia. 7. Hypertension. 8. Diabetes. PLAN: We will continue current treatment. We will continue current antibiotic and put the patient on aspiration precaution. We will continue to provide pulmonary support. We will give the patient to ICU. Treatment plans were discussed with the patient's nurse. Treatment plans were discussed with Dr. Silva. JOB# [id number]
[2018-12-16] MEDS: Docusate Sodium 100 mg/10 mL UD GT SCH (20:32)
[2018-12-17] MEDS: Albuterol Nebulizer 2.5mg/3mL HHN PRN (04:56)
[2018-12-17] MEDS: INSULIN ASPART SLIDING SCALE 100 UNITS/ML UNIT SUBQ SCH (05:35)
[2018-12-17] MEDS: Piperacillin/Tazobact 2.25 gm in 0.9% NS 50 ML IV SCH (05:44)
[2018-12-17] MEDS: Dextrose 5% 1,000 ML IV SCH (05:45)
[2018-12-17] MEDS: Multivitamin w/ Minerals 15 mL UDC GT SCH (09:31)
[2018-12-17] MEDS: Vitamin B Complex w/Vitamin C Tab GT SCH (09:31)
[2018-12-17] MEDS: Lactobacillus Rhamnosus GG 15 Billion CFU CAP.SPRINK PO SCH (09:31)
[2018-12-17] MEDS: Insulin Detemir 100 units/mL 10mL Vial SUBQ SCH (09:31)
[2018-12-17] MEDS: Levothyroxine 0.125 Mg Tab GT SCH (09:33)
[2018-12-17] MEDS: Ferrous Sulfate 300 MG/5 ML UDC GT SCH (09:34)
[2018-12-17] MEDS: Chlorhexidine Gluconate 0.12% 15mL Mouthwash MM SCH (09:34)
[2018-12-17 09:56] LABS: ALB/GLOB RATIO 1.1 (1.0-1.8); ALBUMIN 3.2 gm/dL (3.7-5.3); ALKALINE PHOSPHATASE 85 U/L (34-104); ANION GAP 14.5 (7.0-16.0); BUN - UREA NITROGEN 30 mg/dL (7-25); CALCIUM SERUM 7.8 mg/dL (8.6-10.3); CARBON DIOXIDE 18.7 mEq/L (21.0-31.0); CHLORIDE 103 mEq/L (98-107); CREATININE - SERUM 1.1 mg/dL (0.6-1.2); GFR AFRICAN-AMERICAN > 60.0 ml/min (>90); GFR NON AFRICAN-AMERICAN 52.8 ml/min; GLUCOSE 201 mg/dL (70-105); POTASSIUM SERUM 5.2 mEq/L (3.5-5.1); SGOT 79 U/L (13-39); SGPT/ALT 102 U/L (7-52); SODIUM SERUM 131 mEq/L (136-145); TOTAL PROTEIN,SERUM 6.1 gm/dL (6.0-8.3)
[2018-12-17] MEDS ORDERED: Vancomycin HCl 1.5 GM in Sodium Chloride 0.9% 500 ML IV SCH (10:00)
[2018-12-17 10:06] LABS: HEMATOCRIT 21.9 % (41.0-60); MEAN CELL VOLUME 100.8 fl (81-100); MEAN CORPUSCULAR HEMOGLOBIN 34.5 pg (27.0-31.0); MEAN CORPUSCULAR HGB CONC 34.2 pg (28.0-36.0); MEAN PLATELET VOLUME 6.2 fl; PLATELET COUNT 372 Th/cmm (150-400); RED BLOOD COUNT 2.17 Mil/cmm (3.80-5.20); RED CELL DISTRIBUTION WIDTH 16.7 % (11.5-20.0)
[2018-12-17 10:08] LABS: HEMOGLOBIN 7.5 gm/dL (12-16)
[2018-12-17 10:33] LABS: BAND NEUTROPHILE 0 % (0-10); BASOPHIL 0 % (0-3); EOSINOPHIL 5 % (0-5); LYMPHOCYTE 9 % (20-50); MONOCYTE 3 % (2-10); NEUTROPHILS 83 % (40-80)
== END 2018-12-17 12:00 | DRG 870 ==
LOC: ER 19:43 → ICU 22:17
PROVIDERS: ADMIT Internal Medicine; ATTEND Internal Medicine
PROC: 5A1955Z Respiratory Ventilation, Greater than 96 Consecutive Hours (ICD-10-PCS; principal; 2018-12-12)
DX: A41.9 Sepsis, unspecified organism (principal); J18.9 Pneumonia, unspecified organism; G93.41 Metabolic encephalopathy; J96.20 Acute and chronic respiratory failure, unspecified whether with hypoxia or hypercapnia; N17.9 Acute kidney failure, unspecified; E87.1 Hypo-osmolality and hyponatremia; J44.0 Chronic obstructive pulmonary disease with (acute) lower respiratory infection; I42.9 Cardiomyopathy, unspecified; N39.0 Urinary tract infection, site not specified; Z99.11 Dependence on respirator [ventilator] status; J98.11 Atelectasis; E11.21 Type 2 diabetes mellitus with diabetic nephropathy; E87.6 Hypokalemia; E78.5 Hyperlipidemia, unspecified; M10.9 Gout, unspecified; I48.91 Unspecified atrial fibrillation; E03.9 Hypothyroidism, unspecified; I12.9 Hypertensive chronic kidney disease with stage 1 through stage 4 chronic kidney disease, or unspecified chronic kidney disease; E86.0 Dehydration; K72.10 Chronic hepatic failure without coma; E11.22 Type 2 diabetes mellitus with diabetic chronic kidney disease; F03.90 Unspecified dementia, unspecified severity, without behavioral disturbance, psychotic disturbance, mood disturbance, and anxiety; N18.3 Chronic kidney disease, stage 3 (moderate); D63.8 Anemia in other chronic diseases classified elsewhere; K80.80 Other cholelithiasis without obstruction; K76.0 Fatty (change of) liver, not elsewhere classified; Z86.73 Personal history of transient ischemic attack (TIA), and cerebral infarction without residual deficits; Z93.0 Tracheostomy status; Z93.1 Gastrostomy status
CPT/HCPCS: 36415-UA; 36600-90; 71045-TC; 76700-TC; 80048-TC; 80053-TC; 80061-TC; 81001-TC; 81015-TC; 82043-90; 82088-90; 82140-TC; 82533-90; 82570-TC; 82803-TC; 82948-90; 83036-90; 83605; 83690-TC; 83735-TC; 83880-TC; 83930-90; 84100-TC; 84300-TC; 84443-TC; 84484-TC; 84550-TC; 85007-TC; 85025-TC; 87070; 87086-90; 90799; 93005; 94002; 94003; 94640; C9113; J0696; J0885; J1815; J2001; J2543; J3370; J3480; J7030; J7040; J7070; J7613; Z7610